=== PATIENT | female | born 1980 | race Caucasian/White ===

== ENCOUNTER 2025-07-07 21:09 | Emergency (ER) | payer MEDICAID, SELFPAY ==
--- OUTSIDE RECORDS SUMMARY | 2016-11-07 10:15 | XMS_ITS | Encounter Summary ---
Author Organization [place] [address] Care Team Providers Care Computer Graphic Designer Name Role Phone Deborah El MD Primary Care Provi margi Unavailable Encounter Details Date Type Department Care Team (Late st Contact Info) Description 11/07/2016 11:15 AM EDT Hospital Encounter EDG OB PREADM NURSE [facility] [place] [address] Social History Tobacco Use Types Packs/Day Years Used Date Smoking Tobacco: Former Cigarettes 0.5 29.3 0 07/29/1994 - 11/26/2023 Passive Smoke Exposure: Never Smokeless Tobacco: Never Tobacco Cessation:Ready to Q uit: Yes; Counseling Given: Yes Comments:started age 15, off and on, stopped with all pregnancies Alcohol Use Standard Drinks/Week Comments No 0 (1 standard drink = 0.6 oz pur e alcohol) Overall Financial Resource Strain (CARDIA) Answe r Date Recorded Difficulty of Paying Living Expenses Very hard 09/30/2019 PHQ-2 Answer Date Recorded PHQ-2 Total Score 6 07/16/2024 [facility] [place] of Occupat ional Health - Occupational Stress Questionnaire Answer Date Recorded Do you feel stress - tense, restless, nervous, or anxious, or unable to sleep at night because your mind is troubled all the time - these days? Rather much 10/13/2020 Exercise Vital Sign Answer Date Recorde d On average, how many days pe r week do you engage in moderate to strenuous exercise (like a brisk walk)? 5 days 10/13/2020 On average, how many minutes do you engage in exercise at this level? 150+ min 10/13/2020 Hunger Vital Sign Answer Date Recorded Worried About Running Out of Food in the Last Ye ar Often true 09/30/2019 Ran Out of Food in the Last Year Sometimes true 09/30/2019 PRAPARE - Transportation Answer Date Re corded Lack of Transportation (Medical) No 07/02/2019 Lack of Transportation (Non-Medical) No 07/02/2019 Comments No Sex and Gender Information Value Date Recorded Sex Assigned at Not on file Legal Sex Female 9:52 PM EDT Gender Identity Not on file Sexual Orientation Not on file COVID-19 Exposure Response Date Recorded In the last 10 days, have yo u been in contact with someone who was confirmed or suspected to have Coronavirus/COVID-19? No / Unsure 12/20/2022 2:09 PM EDT documented as of this encounter Functional Status * Question Answer Date of Assessment Author Is the person deaf or does he/she have serious difficulty hearing? No 02/08/2020 8:14 AM Bella Harrison RN Is the person blind or does he/she have serious difficulty seeing even when wearing glasses? No 02/08/2020 8:14 AM Bella Harrison RN Does this person have seriou s difficulty walking or climbing stairs? No 02/08/2020 8:14 AM Bella Harrison RN Does this person have diffic ulty dressing or bathing? No 02/08/2020 8:14 AM Bella Harrison RN * Is the person deaf or does he/she have serious difficulty hearing? Answer Date of Assessment Author No 10/13/2016 9:50 PM Douglas Larson RN * Is the person blind or does he/she have serious difficulty seeing even when wearing glasses? Answer Date of Assessment Author No 10/13/2016 9:50 PM Douglas Larson RN * Does this person have serious difficulty walking or climbing stairs? Answer Date of Assessment Author No 10/13/2016 9:50 PM Douglas Larson RN * Does this person have difficulty dressing or bathing? Answer Date of Assessment Author No 10/13/2016 9:50 PM Douglas Larson RN * Because of a physical, mental or emotional condition, does this person have difficulty doing errands alone such as visiting a doctor's office or shopping? Answer Date of Assessment Author No 10/13/2016 9:50 PM Douglas Larson RN * PHQ-2 Total Score Answer Date of Assessment Author 6 07/16/2024 9:00 AM Nicky Cheatham RMA * PHQ-9 Total Score Answer Date of Assessment Author 18 07/16/2024 9:00 AM Nicky Cheatham RMA * Question Answer Date of Assessment Author Little interest or pleasure in doing things 3 07/16/2024 9:00 AM Deborah Cheatham RMA Feeling down, depressed, or hopeless 3 07/16/2024 9:00 AM Deborah Cheatham RMA Trouble falling or staying asleep, or sleeping too much 3 07/16/2024 9:00 AM Deborah Cheatham RMA Feeling tired or having sherry le energy 3 07/16/2024 9:00 AM Deborah Cheatham RMA Poor appetite or overeating 0 07/16/2024 9: 00 AM Deborah Cheatham RMA Feeling bad about yourself - or that you are a failure or have let yourself or your family down 3 07/16/2024 9:00 AM Deborah Cheatham RMA Trouble concentrating on things, such as reading the newspaper or watching television 3 07/16/2024 9:00 AM Deborah Cheatham RMA Moving or speaking so slowly that other people could have noticed. Or the opposite - being so fidgety or restless that you have been moving around a lot more than usual 0 07/16/2024 9:00 AM Deborah Cheatham RMA Thoughts that you would be better off , or of hurting yourself in some way 0 07/16/2024 9:00 AM Deborah Cheatham RMA documented as of this encounter Mental Status * Question Answer Entry Date Author Because of a physical, menta l or emotional condition, does this person have difficulty doing errands alone such as visiting a doctor's office or shopping? No 02/08/2020 8:14 AM EDT Bella Pimentel RN Because of a physical, menta l or emotional condition, does this person have serious difficulty concentrating, remembering or making decisions? No 02/08/2020 8:14 AM EDT Bella Pimentel RN * Because of a physical, mental or emotional condition, does this person have serious difficulty concentrating, remembering or making decisions? Answer Entry Date Author No 10/13/2016 9:50 PM EDT Douglas Yun RN documented in this encounter Plan of Treatment Not on file documented as of this encounter Goals Goal Patient Goal Type Associated Problems Recent Progress Patient-Stated? Author Blood Pressure < 140/90 Blood Pressure 142/65(2024 12:12 AM EST) No Lana Tobias RMA Quit smoking General Yes Deborah El MD BMI (Calculated) < 30 General 36.2(06/10/20 25 3:40 PM EST) No Lana Tobias RMA Maintain a healthy diet, exercise regularly and maintain an ideal body weight General No Lana Tobias RMA Stay Tobacco Free Lifestyle No Lana Tobias RMA HEMOGLOBIN A1C < 7.0 Result Component 5.2( 5 10:31 AM EDT) No Jluis Lo MA Weight < 185 lb (83.915 kg) Weight 185 lb (83.9 kg)( 5 3:40 PM EST) No Deborah El MD documented as of this encounter Visit Diagnoses Not on filedocumented in this encounter Care Teams Computer Graphic Designer Relationship Specialty Start Date End Date Deborah El MD PCP - General Family Medicine 11/23/15 07/11/20 documented as of this encounter
--- OUTSIDE RECORDS SUMMARY | 2020-02-02 07:15 | XMS_ITS | Encounter Summary ---
Author Organization [place] [address] Care Team Providers Care Automotive Worker Foreman Name Role Phone Deborah El MD Primary Care Provi margi Unavailable Brittany Renee B2B SALES EXECUTIVE Unavailable Unavail able Encounter Details Date Type Department Care Team (Latest Contact Info) Description 02/02/2020 8:15 AM EDT Hospital [facility] [place] [address] Iron deficiency anemia during Social History Tobacco Use Types Packs/Day Years Used Date Smoking Tobacco: Former Cigarettes 0.5 29.3 0 07/29/1994 - 11/26/2023 Passive Smoke Exposure: Never Smokeless Tobacco: Never Comments:started age 15, off and on, stopped with all pregnancies Alcohol Use Standard Drinks/Week Comments No 0 (1 standard drink = 0.6 oz pur e alcohol) Overall Financial Resource Strain (CARDIA) Answe r Date Recorded Difficulty of Paying Living Expenses Very hard 09/30/2019 PHQ-2 Answer Date Recorded PHQ-2 Total Score 6 07/16/2024 [facility] [place] of Occupat ional Health - Occupational Stress [...] hearing? Answer Date of Assessment Author No 01/01/2020 11:34 AM Doreen Graham RN * Is the person blind or does he/she have serious difficulty seeing even when wearing glasses? Answer Date of Assessment Author No 01/01/2020 11:34 AM Doreen Graham RN * Does this person have serious difficulty walking or climbing stairs? Answer Date of Assessment Author No 01/01/2020 11:34 AM Doreen Graham RN * Does this person have difficulty dressing or bathing? Answer Date of Assessment Author No 01/01/2020 11:34 AM Doreen Graham RN * Because of a physical, mental or emotional condition, does this person have difficulty doing errands alone such as visiting a doctor's office or shopping? Answer Date of Assessment Author No 01/01/2020 11:34 AM Doreen Graham RN * PHQ-2 Total Score Answer Date [...] family down 3 07/16/2024 9:00 AM Deborah Cheatahm RMA Trouble concentrating on things, such as [...] making decisions? Answer Entry Date Author No 01/01/2020 11:34 AM EDT Doreen Ruelas RN documented in this encounter Plan of [...] documented as of this encounter Visit Diagnoses Diagnosis Iron deficiency anemia during documented in this encounter Additional Health Concerns Assessment Noted Time PHQ-9 Depression Total Score: 24 019 10:25 AM EDT PHQ-2 Depression Total Score: 6 01/08/20 19 10:25 AM EDT documented as of this encounter Care Teams Automotive Worker Foreman Relationship Specialty Start Date End Date Deborah El MD PCP - General Family Medicine 11/23/15 07/11/20 Brittany Renee, B2B SALES EXECUTIVE Boat Oar Maker 09/30/19 documented as of this encounter
--- OUTSIDE RECORDS SUMMARY | 2021-04-20 14:39 | XMS_ITS | Encounter Summary ---
Author Organization [place] [address] Care Team Providers Care Outside Salesperson Name Role Phone Raleigh Christiansen MD Unavailable Unavailable Jose E Brooke MD Primary Care Provider [phone] Encounter Details Date Type Department Care Team (Latest Contact Info) Description 04/20/2021 3:39 PM EDT Hospital Encounter [facility] Referral Lab [address] [place] [id number] Phyllis Cooley, [place] [address] [place] [id number] Encounter for therapeutic drug level monitoring Social History Tobacco Use Types Packs/Day Years [...] Date Recorded PHQ-2 Total Score 6 07/16/2024 [facility] [place] of Occupat ional Health - Occupational Stress [...] as of this encounter Functional Status * Is the person deaf or does he/she have serious difficulty hearing? Answer Date of Assessment Author No 02/08/2020 8:14 AM Bella Harrison RN * Is the person blind or does he/she have serious difficulty seeing even when wearing glasses? Answer Date of Assessment Author No 02/08/2020 8:14 AM Bella Harrison RN * Does this person have serious difficulty walking or climbing stairs? Answer Date of Assessment Author No 02/08/2020 8:14 AM Bella Harrison RN * Does this person have difficulty dressing or bathing? Answer Date of Assessment Author No 02/08/2020 8:14 AM Bella Harrison RN * Because of a physical, mental or emotional condition, does this person have difficulty doing errands alone such as visiting a doctor's office or shopping? Answer Date of Assessment Author No 02/08/2020 8:14 AM Bella Harrison RN * PHQ-2 Total Score Answer Date of Assessment Author 6 07/16/2024 9:00 AM Nicky Cheatham RMA * PHQ-9 Total Score Answer Date of Assessment Author 18 07/16/2024 9:00 AM Nicky Cheatham RMA * Question Answer Date of Assessment Author Little interest or pleasure in doing things 3 07/16/2024 9:00 AM eDborah Cheatham, BERNA[place] Feeling down, depressed, or hopeless 3 07/16/2024 9:00 AM Deborah Cheatham, AKHILA Trouble falling or staying asleep, or sleeping too much 3 07/16/2024 9:00 AM Deborah Cheatham, BERNADETTE Feeling tired or having sherry le energy 3 07/16/2024 9:00 AM Deborah Cheatham, BERNA[place] Poor appetite or overeating 0 07/16/2024 9: 00 AM Deborah Cheatham, BERNA[place]TE Feeling bad about yourself - or that you are a failure or have let yourself or your family down 3 07/16/2024 9:00 AM Deborah Cheatham, BERNADETTE Trouble concentrating on things, such as reading the newspaper or watching television 3 07/16/2024 9:00 AM Deborah Cheatham, BERNADETTE Moving or speaking so slowly that other [...] as of this encounter Mental Status * Because of a physical, mental or emotional condition, does this person have serious difficulty concentrating, remembering or making decisions? Answer Entry Date Author No 02/08/2020 8:14 AM Bella Harrison RN documented in this encounter Plan of Treatment Not on file documented as of this encounter Goals Goal Patient Goal Type Associated Problems Recent Progress Patient-Stated? Author Blood Pressure < 140/90 Blood Pressure 142/65(2024 12:12 AM EST) No Lana Tobias RMA Quit smoking General Yes Deborah El MD BMI (Calculated) < 30 General 36.2(06/10/20 3:40 PM EST) No Lana Tobias RMA Maintain a healthy diet, exercise regularly and maintain an ideal body weight General No Lana Tobias AKHILSuze Stay Tobacco Free Lifestyle No Lana Tobias BERNADETTE HEMOGLOBIN A1C < 7.0 Result Component 5.2( 10:31 AM EDT) No Jluis Lo MA Weight < 185 lb (83.915 kg) Weight 185 lb (83.9 kg)( 3:40 PM EST) No Deborah El MD documented as of this encounter Results * HUMAN CHORIONIC GONADOTROPIN QUANTITATIVE (04/21/2021 8:29 AM EDT) Pathologist [facility] Hcg Quant <1 <5 mIU/mL 04/21/2021 4:5 6 PM EDT [employer] Blood Venipuncture / Unknown 04/21/2021 8:29 AM EDT 04/21/2021 8:29 AM EDT Narrative [facility] [employer] - 04/21/2021 4:56 PM EDT Ingestion of debora doses of biotin (>5 mg/day) taken within 8 hours of drawing blood sample can interfere with this immunoassay test. Female (non-): 0-4.9 mIU/mL Female (postmenopausal): 0-8.1 mIU/mL Indeterminate values for (e.g., 5-25 mIU/mL) may be confirmed with a repeat test in 48-72 hours. Values in should double every 2-3 days for the first six weeks. us Phyllis Cooley NP CHEMISTRY ORDERABLES F inal Result [employer] [address] [facility] , [place] [address] * HEMOGLOBIN A1C (04/21/2021 8:29 AM EDT) [facility] Hgb A1C 4.9 4.2 - 5.6 % 04/21/2021 4:22 PM EDT [facility] Est. Avg Glucose 94 mg/dL 04/21/2021 4:22 PM EDT [facility] Blood Venipuncture / Unknown 04/21/2021 8:29 AM EDT 04/21/2021 8:29 AM EDT Narrative [facility] - 04/21/2021 4:22 PM EDT REFERENCE RANGE: Normal: 4.0-5.6% Pre-diabetes: 5.7-6.4% Provisional diagnosis of diabetes: >6.4% Hgb F>10% and anything which shortens red cell survival, such as hemolytic anemia, or unstable hemoglobin variants such as HbSS, HbSC, or HbCC, will lower the HbA1c value associated with a given level of glycemic control. Phyllis Cooley FARROWING MANAGER CHEMISTRY ORDERABLES F inal Result Performing Organization Address [facility] de Phone Number [facility] [place] , [place] [address] * TSH REFLEX (04/21/2021 8:29 AM EDT) TSH Reflex 1.160 0.270 - 4.200 mcIU/mL 04/21/2021 4:50 PM EDT [facility] Blood Venipuncture / Unknown 04/21/2021 8:29 AM EDT 04/21/2021 8:29 AM EDT [facility] - 04/21/2021 4:50 PM EDT Ingestion of debora doses of biotin (>5 mg/day) taken within 8 hours of drawing blood sample can interfere with this immunoassay test. Phyllis Cooley FARROWING MANAGER CHEMISTRY ORDERABLES F inal Result Performing Organization Address [facility] Co de Phone Number [facility] , [place] [address] * (ABNORMAL) RENAL FUNCTION PANEL (04/21/2021 8:29 AM EDT) [facility] Sodium 140 136 - 145 mmol/L 04/21/2021 4:50 PM EDT [facility] Potassium 4.2 3.5 - 5.0 mmol/L 04/21/2021 4:50 PM EDT [facility] Chloride 106 98 - 107 mmol/L 04/21/2021 4:50 PM EDT [facility] Total CO2 22 22 - 29 mmol/L 04/21/2021 4:50 PM EDT [facility] Anion Gap 12 7 - 16 mmol/L 04/21/2021 4:50 PM EDT [facility] Calcium 8.6 8.6 - 10.4 mg/dL 04/21/2021 4:50 PM EDT [facility] Glucose Lvl 117(H) 74 - 100 mg/dL 04/21/2021 4:50 PM EDT [facility] BUN 11 6 - 20 mg/dL 04/21/2021 4:50 PM EDT [facility] Creatinine 0.63 0.51 - 1.30 mg/dL 04/21/2021 4:50 PM EDT [facility] Albumin 4.2 3.5 - 5.2 gm/dL 04/21/2021 4:50 PM EDT [facility], [facility] Phosphorus 3.1 2.5 - 4.5 mg/dL 04/21/2021 4:50 PM EDT [facility], [facility] GFR Afr Am 131 >=60 mL/min/1.7 3 m2 04/21/2021 4:50 PM [facility] GFR Non Afr Am 113 >=60 mL/min/1.7 3 m2 04/21/2021 4:50 PM T [facility] Comment: This estimated GFR was calculated using CKD-EPI equation which is modified based on ethnicity for Non Americans and Americans. Both results are reported since it is not always possible to determine the patient's ethnicity. This equation should only be used for individuals 18 and older. It has not been validated for use with the elderly (>70 years), women, or in some racial or ethnic subgroups, such as Hispanics. The equation will be less accurate in people with differences in nutritional status or muscle mass. Blood Venipuncture / Unknown 04/21/2021 8:29 AM EDT 04/21/2021 8:29 AM EDT us Phyllis Cooley NP CHEMISTRY ORDERABLES F inal Result [facility] [address] [facility], [address] [place] [phone] [facility] [address] [id number] * (ABNORMAL) CBC WITH DIFF (04/21/2021 8:29 AM EDT) WBC 5.9 3.7 - 10.3 x10(3)/mc L 04/21/2021 4:19 PM EDT [facility] RBC 4.27 3.90 - 5.20 x10(6)/mc L 04/21/2021 4:19 PM EDT [facility] Hgb 8.7(L) 11.2 - 15.7 g/dL 04/21/2021 4:19 PM EDT [facility] Hct 31.1(L) 34.0 - 45.0 % 04/21/2021 4:19 PM EDT [facility] MCV 72.8(L) 80.0 - 100.0 fL 04/21/2021 4:19 PM EDT [facility] MCH 20.4(L) 26.0 - 34.0 pg 04/21/2021 4:19 PM EDT [facility] MCHC 28.0(L) 30.7 - 35.5 g/dL 04/21/2021 4:19 PM EDT [facility] RDW 18.2(H) <=14.9 % 04/21/2021 4:19 PM EDT [facility] Platelet 417(H) 155 - 369 x10(3)/mc L 04/21/2021 4:19 PM EDT [facility] MPV 10.2 8.8 - 12.5 fL 04/21/2021 4:19 PM EDT [facility] Neut Percent 60.2 % 04/21/2021 4:19 PM EDT [facility] Comment:Neutrophils equals s egs plus bands Imm Gran% 0.2 % 04/21/2021 4:19 PM EDT [facility] Comment:Automated count of m etamyelocytes, myelocytes and promyelocytes. Lymph Percent 27.3 % 04/21/2021 4:19 PM EDT [facility] [place] Percent 5.9 % 04/21/2021 4:19 PM EDT [facility] Eos Percent 5.6 % 04/21/2021 4:19 PM EDT [facility] Baso Percent 0.8 % 04/21/2021 4:19 PM EDT [facility] Neut # 3.6 1.6 - 6.1 x10(3)/mc L 04/21/2021 4:19 PM EDT [facility] Comment:Neutrophils equals s egs plus bands IMMGRAN# 0.0 0.0 - 0.1 x10(3)/mc L 04/21/2021 4:19 PM EDT [facility] Comment:Automated count of m etamyelocytes, myelocytes and promyelocytes. An absolute IG <0.1 is reported as 0.0. Lymph # 1.6 1.2 - 3.9 x10(3)/mc L 04/21/2021 4:19 PM EDT [facility] [place] # 0.4 0.3 - 0.9 x10(3)/mc L 04/21/2021 4:19 PM EDT [facility] Eos# 0.3 0.0 - 0.5 x10(3)/mc L 04/21/2021 4:19 PM EDT [facility] Baso # 0.1 0.0 - 0.1 x10(3)/mc L 04/21/2021 4:19 PM EDT [facility] Polychrom Slight 04/21/2021 4:19 PM EDT [facility] Hypochrom Moderate 04/21/2021 4:19 PM EDT [facility] Ovalocyte Occasional 04/21/2021 4:19 PM EDT [facility] Supply Cell Occasional 04/21/2021 4:19 PM EDT [facility] Schistocyte 0-1 /HPF 04/21/2021 4:19 PM EDT [facility] Blood Venipuncture / Unknown 04/21/2021 8:29 AM EDT 04/21/2021 8:29 AM EDT Phyllis Cooley FARROWING MANAGER HEMATOLOGY ORDERABLES Final Result Performing Organization Address City/[facility]/ZIP Co de Phone Number [facility] [address] [facility] , [address] [place] [phone] * (ABNORMAL) LIPID PANEL REFLEX (04/21/2021 8:29 AM EDT) Cholesterol 134 <200 mg/dL 04/21/2021 4:50 PM EDT [facility] Comment: < 200 Desirable 200 - 239 Borderline High >= 240 High Triglyceride 86 <150 mg/dL 04/21/2021 4:50 PM EDT [facility] Comment: < 150 Normal 150 - 199 Borderline High 200 - 499 High >= 500 Very High HDL 36(L) >=40 mg/dL 04/21/2021 4:50 PM EDT [facility] Comment: > 60 Optimal 40 - 60 Acceptable < 40 Low LDL Calculated 81 <100 mg/dL 04/21/2021 4:50 PM EDT [facility] Non-HDL-C Calculated 98 <=129 mg/dL 04/21/2021 4:50 PM EDT [facility] Comment: <130 Desirable 130-159 Above Desirable 160-189 Borderline High 190-219 High >= 220 Very High Fasting Specimen? No None 021 4:50 PM EDT [facility] Blood Venipuncture / Unknown 04/21/2021 8:29 AM EDT 04/21/2021 8:29 AM EDT Phyllis Cooley FARROWING MANAGER CHEMISTRY ORDERABLES F inal Result Performing Organization Address City/[facility]/ZIP Co de Phone Number [facility] [address], [place] [address] [facility] [address] [place] [phone] documented in this encounter Visit Diagnoses Diagnosis Encounter for therapeutic drug level monitoring Encounter for therapeutic drug monitoring documented in this encounter Orders Lab Orders Without Results Count Last Ordered D ate First Ordered Date BASIC METABOLIC PANEL 1 04/20/2021 HEPATIC FUNCTION PANEL 1 04/20/2021 documented in this encounter Additional Health Concerns Assessment Noted Time PHQ-9 Depression Total Score: 2 08/11/19 21 11:09 AM EST PHQ-2 Depression Total Score: 2 08/11/19 21 11:09 AM EST documented as of this encounter Care Teams Outside Salesperson Relationship Specialty Start Date End Date Raleigh Christiansen MD PCP - Hematology/Oncology Internal Medicine-Hematology and Oncology 03/10/20 Jose E Brooke MD PCP - General Family Medicine 01/26/21 01/29/22 documented as of this encounter
--- OUTSIDE RECORDS SUMMARY | 2025-05-14 08:45 | XMS_ITS | Encounter Summary ---
Author Organization [facility] Address [address] [place] [address] Care Team Providers Care Measurement Superintendent Name Role Phone Raleigh Christiansen MD Unavailable Unavailable Raleigh Christiansen MD Unavailable Unavailable Sharad Salvador MD Unavailable Karri Rosas MD Primary Care Provider [phone] Reason for Referral * MRI/CAT Scan (Routine) - AFF Authorized Specialty Diagnoses / Procedures Referred By Contac t Referred To Contact Orthopedic Surgery Diagnoses Sprain of left knee, unspecified ligament, initial encounter Bursitis of left knee, unspecified bursa Procedures MRI KNEE LEFT WO CONTRAST Chris Cuellar MD [address] [address] Phone: tel: fax: [facility] [address] [place] [address] Phone: tel: fax: Referral ID Status Reason Start Date Expiration Date Visits Requested Visits Authorized [id number] AFF Authorized 05/14/2025 05/14/2026 1 1 Reason for Visit * Reason Comments Follow-up Encounter Details Date Type Department Care Team ([facility] Contact Info) Description 05/14/2025 9:45 AM EDT Office Visit [facility] [address] [place] [address] Chris Cuellar MD [address] [place], [place] [id number] Sprain of left knee, unspecified ligament, initial encounter (Primary Dx); Bursitis of left knee, unspecified bursa Social History Tobacco Use Types Packs/Day Years [...] Date Recorded PHQ-2 Total Score 6 07/16/2024 [facility] Occupat ional Health - Occupational Stress [...] on file Sexual Orientation Not on file documented as of this encounter Last Filed Vital Signs Vital Sign Reading Time Taken Comments Blood Pressure - - Pulse - - Temperature - - Respiratory Rate - - Oxygen Saturation - - Inhaled Oxygen Concentration - - Weight 86.2 kg (190 lb) 05/14/2025 9:36 AM EDT Height 152.4 cm (5') 05/14/2025 9:36 AM EDT Body Mass Index 37.11 05/14/2025 9:36 AM EDT documented in this encounter Functional Status * Is the person deaf or does he/she have serious difficulty hearing? Answer Date of Assessment Author No 02/08/2020 8:14 AM EDT Bella Pimentel RN * Is the person blind or does he/she have serious difficulty seeing even when wearing glasses? Answer Date of Assessment Author No 02/08/2020 8:14 AM EDT Bella Pimentel RN * Does this person have serious difficulty walking or climbing stairs? Answer Date of Assessment Author No 02/08/2020 8:14 AM EVANT Bella Pimentel RN * Does this person have difficulty dressing or bathing? Answer Date of Assessment Author No 02/08/2020 8:14 AM Bella Harrison RN * Because of a physical, mental or emotional condition, does this person have difficulty doing errands alone such as visiting a doctor's office or shopping? Answer Date of Assessment Author No 02/08/2020 8:14 AM EDBella Damico RN documented as of this encounter Mental Status * Because of a physical, mental or emotional condition, does this person have serious difficulty concentrating, remembering or making decisions? Answer Entry Date Author No 02/08/2020 8:14 AM Bella Harrison RN documented in this encounter Progress Notes * Chris Cuellar MD - 05/14/2025 9:45 AM EDT Images from the original note were not included. Chrsi Cuellar MD [facility] [phone] Gem Lemon is a 45 y.o. female comes in to office today for left knee sprain, medial meniscus tear and bursitis. Awaiting insurance approval of the requested MRI left knee. Patient reports that she has been the same since her last appointment she has finished the insurance requested PT, ongoing pain and swelling. Pain level: 6 /10 Location: left knee Description: moderate aching and sharp Radiation: YES/NO: No Time: FREQUENCY; INTERMITTENT / PERSISTENT: intermittent ROS All systems reviewed and negative. Exam: Height: 5' (152.4 cm) Weight: 190 lb (86.2 kg) General Exam: Pt is alert and oriented x 3 and in no acute distress. Gait is with pain with pain. Mood and affect are appropriate. HEENT Normocephalic. Extremities: No varicosities No edema Neurologic: Sensation- normal to light touch. DTR-symmetric and brisk. Seated straight leg raise negative. Toe/Heel walk weak. Today Musculoskeletal: Lower Extremities Bilateral lower extremity strength symmetric - No Good muscle tone without atrophy - No Left knee decreased quadricep tone pain with extension positive Uriel no ligamentous laxity Data: I independently reviewed the X-ray with the patient. I provided my interpretation to the patient during today's office visit. Assessment: Diagnoses and all orders for this visit: Sprain of left knee, unspecified ligament, initial encounter - MRI KNEE LEFT WO CONTRAST; Future Bursitis of left knee, unspecified bursa - MRI KNEE LEFT WO CONTRAST; Future Plan: Reviewed prior X-rays and updated exam today, to assist in today's clinical decisions. History exam x-rays reviewed, ongoing meniscus pathology despite the requested PT, completed the required length. Get MRI left knee. Remain active as able, to be advanced as pain allows. Call staff with questions or concerns. I covered risks, benefits, alternative treatment options and the rationale. The anatomical and physiological reference registered radiation therapist in the clinic room was available as a resource during this visit. The patient had the opportunity to ask questions, all of which were answered in turn. OV with MRI results DME Summary No orders found for display Chris Cuellar MD [facility] [phone] Parts of this note may have been created by a chart review, combined by taking my own patient history. The patient was physically seen and examined by myself, including a personal review of images, tests, and formation of the impression and plan. In addition, this note may been dictated utilizing voice recognition software. Unfortunately this leads to occasional typographical errors. I apologize in advance if the situation occurs. If questions occur please do not hesitate to call our office. The patient was advised to call with any issues or concerns in the future. documented in this encounter Plan of Treatment [...] documented as of this encounter Results * MRI KNEE LEFT WO CONTRAST (06/02/2025 5:47 PM EST) Narrative [facility] - 06/02/2025 5:47 PM EST Please see the scanned MRI report associated with this order on the Imaging tab of the patient's chart. us Chris Cuellar MD IMG MRI ORDERABLES Final Result [facility] documented in this encounter Visit Diagnoses Diagnosis Sprain of left knee, unspecified ligament, initial encounter- Primary Bursitis of left knee, unspecified bursa Sprain of left knee, unspecified ligament, initial encounter Bursitis of left knee, unspecified bursa documented in this encounter Additional Health Concerns Assessment Noted Time PHQ-9 Depression Total Score: 18 024 9:00 AM EST PHQ-2 Depression Total Score: 6 07/16/20 24 9:00 AM EST documented as of this encounter Care Teams Measurement Superintendent Relationship Specialty Start Date End Date Raleigh Christiansen MD PCP - Hematology/Oncology Internal Medicine-Hematology and Oncology 03/10/20 Karri Rosas MD [address] [place] [address] [address] [place], [place] [address] PCP - General Family Medicine 07/16/24 Raleigh Christiansen MD Medical Oncologist Internal Medicine-Hematology and Oncology 06/12/21 Sharad Salvador MD Urology 05/10/22 documented as of this encounter
--- OUTSIDE RECORDS SUMMARY | 2025-05-14 12:15 | XMS_ITS | Encounter Summary ---
Author Organization [facility] [place] [address] Care Team Providers Care Vegetable Buncher Name Role Phone Raleigh Christiansen MD Unavailable Unavailable Raleigh Christiansen MD Unavailable Unavailable Sharad Salvador MD Unavailable Karri Rosas MD Primary Care Provider Reason for Visit * Reason Comments Other Herpes outbreak x2 d ays Encounter Details Date Type Department Care Team (Late st Contact Info) Description 05/14/2025 1:15 PM EDT Office Visit [facility] [address] Karri Rosas MD [address] [place] [address] [place] [address] Herpes (Primary Dx) Social History Tobacco Use Types Packs/Day Years Used Date Smoking Tobacco: Former Cigarettes 0.5 29.3 0 07/29/1994 - 11/26/2023 Passive Smoke Exposure: Never Smokeless Tobacco: Never Tobacco Cessation:Counseling Given: Not Answered Comments:started age 15, off and on, stopped with all pregnancies Alcohol Use Standard Drinks/Week Comments No 0 (1 standard drink = 0.6 oz pur e alcohol) Overall Financial Resource Strain (CARDIA) Answe r Date Recorded Difficulty of Paying Living Expenses Very hard 09/30/2019 PHQ-2 Answer Date Recorded PHQ-2 Total Score 6 07/16/2024 [facility] [place] of Occupat ional Health - Occupational Stress [...] Sign Reading Time Taken Comments Blood Pressure 120/70 05/14/2025 12:58 PM EDT Pulse 71 05/14/2025 12:58 PM EDT Temperature 36.7 C (98.1 F) 05/14/2025 12:58 PM EDT Respiratory Rate 18 05/14/2025 12:58 PM EDT Oxygen Saturation 99% 05/14/2025 12:58 PM EDT Inhaled Oxygen Concentration - - Weight 83.9 kg (185 lb) 05/14/2025 12:58 PM EDT Height 152.4 cm (5') 05/14/2025 12:58 PM EDT Body Mass Index 36.13 05/14/2025 12:58 PM EDT documented in this encounter Functional Status [...] 02/08/2020 8:14 AM Bella Harrison RN documented as of this encounter Mental Status * Because of a physical, mental or emotional condition, does this person have serious difficulty concentrating, remembering or making decisions? Answer Entry Date Author No 02/08/2020 8:14 AM Bella Harrison RN documented in this encounter Ordered Prescriptions Prescription Sig Dispense Quantity Refills Last Filled Start Date End Date valACYclovir (VALTREX) 1 gram Oral TabletIndications:H erpes Take 1 Tablet by mouth 2 times daily. 14 Tablet 5 05/14/2025 documented in this encounter Progress Notes * Karri Rosas MD - 05/14/2025 1:15 PM EDT Assessment & Plan Herpes Orders: valACYclovir (VALTREX) 1 gram Oral Tablet; Take 1 Tablet by mouth 2 times daily. Will treat herpes outbreak with valacyclovir follow-up as needed Progress Note: Vitals: 05/14/25 1258 BP: 120/70 Pulse: 71 Resp: 18 Temp: 98.1 ??F (36.7 ??C) TempSrc: Temporal SpO2: 99% Weight: 185 lb (83.9 kg) Height: 5' (1.524 m) Body mass index is 36.13 kg/m??. SUBJECTIVE: Chief Complaint Patient presents with Other Herpes outbreak x2 days HPI: 2-day history of herpes outbreak on her lip. Previously responds well to valacyclovir but does not have an active prescription for this. Having associated pain and discomfort when talking and swallowing/eating. Review of Systems Constitutional: Negative for activity change, chills, fatigue and fever. Skin: Positive for rash. OBJECTIVE: Physical Exam Vitals reviewed. Constitutional: Appearance: She is not ill-appearing. HENT: Mouth/Throat: Comments: Herpes blisters on lower lip Neurological: General: No focal deficit present. Mental Status: She is alert and oriented to person, place, and time. Psychiatric: Mood and Affect: Mood normal. documented in this encounter Plan of Treatment [...] ideal body weight General No Lana Tobias RMSuze Stay Tobacco Free Lifestyle No Lana Tobias RMA HEMOGLOBIN A1C < 7.0 Result Component 5.2( 10:31 AM EDT) No Jluis Lo MA Weight < 185 lb (83.915 kg) Weight 185 lb (83.9 kg)( 3:40 PM EST) No Deborah El MD documented as of this encounter Visit Diagnoses Diagnosis Herpes- Primary Herpes simplex without mention of complication documented in this encounter Additional Health Concerns Assessment Noted Time PHQ-9 Depression Total Score: 18 024 9:00 AM EST PHQ-2 Depression Total Score: 6 07/16/20 24 9:00 AM EST documented as of this encounter Care Teams Vegetable Buncher Relationship Specialty Start Date End Date Raleigh Christiansen MD PCP - Hematology/Oncology Internal Medicine-Hematology and Oncology 03/10/20 Karri Rosas MD [address] [place] [address] [place] [address] PCP - General Family Medicine 07/16/24 Raleigh Christiansen MD Medical Oncologist Internal Medicine-Hematology and Oncology 06/12/21 Sharad Salvador MD Urology 05/10/22 documented as of this encounter
--- OUTSIDE RECORDS SUMMARY | 2025-06-02 17:30 | XMS_ITS | Encounter Summary ---
Author Organization [facility] Address [address] [place] [address] Care Team Providers Care Room Service Clerk Name Role Phone Raleigh Christiansen MD Unavailable Unavailable Raleigh Christiansen MD Unavailable Unavailable Sharad Salvador MD Unavailable Karri Rosas MD Primary Care Provider [phone] Reason for Visit * MRI/CAT Scan (Routine) - AFF Authorized Specialty Diagnoses / Procedures Referred By Contac t Referred To Contact Orthopedic Surgery Diagnoses Sprain of left knee, unspecified ligament, initial encounter Bursitis of left knee, unspecified bursa Procedures MRI KNEE LEFT WO CONTRAST Chris Cuellar MD [address] [place] [address] Phone: tel: fax: [facility] [address] [place] [address] Phone: tel: fax: Referral ID Status Reason Start Date Expiration Date Visits Requested Visits Authorized [id number] AFF Authorized 05/14/2025 05/14/2026 1 1 Encounter Details Date Type Department Care Team (Latest Contact Info) Description 06/02/2025 5:30 PM EST Ancillary Procedure [facility] [address] [place] [address] Chris Cuellar MD [address] [place] [address] Sprain of left knee, unspecified ligament, initial encounter; Bursitis of left knee, unspecified bursa Social [...] Date Recorded PHQ-2 Total Score 6 07/16/2024 [facility] of Occupat ional Health - Occupational [...] on file documented as of this encounter Functional Status * Is the person deaf or does he/she have serious difficulty hearing? Answer Date of Assessment Author No 02/08/2020 8:14 AM Bella Harrison RN * Is the person blind or does he/she have serious difficulty seeing even when wearing glasses? Answer Date of Assessment Author No 02/08/2020 8:14 AM EDT Margarito, Bella L, RN * Does this person have serious [...] Stay Tobacco Free Lifestyle No Lana Tobias RMSuze HEMOGLOBIN A1C < 7.0 Result Component 5.2( 10:31 AM EDT) No Jluis Lo MA Weight < 185 lb (83.915 kg) Weight 185 lb (83.9 kg)( 3:40 PM EST) No Deborah El MD documented as of this encounter Procedures Procedure Name Priority Date/Time Associated Diagnosis Comments MRI KNEE LEFT WO CONTRAST Routine 06/02/2025 5:47 PM EST Sprain of left knee, unspecified ligament, initial encounter Bursitis of left knee, unspecified bursa documented in this encounter Results * MRI KNEE LEFT WO CONTRAST (06/02/2025 5:47 PM EST) Narrative [facility] - 06/02/2025 5:47 PM EST Please see the scanned MRI report associated with this order on the Imaging tab of the patient's chart. us Chris Cuellar MD IMG MRI ORDERABLES Final Result [facility] documented in this encounter Visit Diagnoses Diagnosis Sprain of left knee, unspecified ligament, initial encounter Bursitis of left knee, unspecified bursa documented in this encounter Additional Health Concerns Assessment Noted Time PHQ-9 Depression Total Score: 18 024 9:00 AM EST PHQ-2 Depression Total Score: 6 07/16/20 24 9:00 AM EST documented as of this encounter Care Teams Room Service Clerk Relationship Specialty Start Date End Date Raleigh Christiansen MD PCP - Hematology/Oncology Internal Medicine-Hematology and Oncology 03/10/20 Karri Rosas MD [address] [place] [address] [place] [address] PCP - General Family Medicine 07/16/24 Raleigh Christiansen MD Medical Oncologist Internal Medicine-Hematology and Oncology 06/12/21 Sharad Salvador MD Urology 05/10/22 documented as of this encounter
--- OUTSIDE RECORDS SUMMARY | 2025-06-10 15:15 | XMS_ITS | Encounter Summary ---
Author Organization [facility] Address [address] [place] [address] Care Team Providers Care Brand Strategy Manager Name Role Phone Raleigh Christiansen MD Unavailable Unavailable Raleigh Christiansen MD Unavailable Unavailable Sharad Salvador MD Unavailable Karri Rosas MD Primary Care Provider [phone] Reason for Visit * Reason Comments Follow-up Encounter Details Date Type Department Care Team (Late st Contact Info) Description 06/10/2025 3:15 PM EST [facility] [address] [facility] [address] [place] [address] Chris Cuellar MD [address] [address] Acute lateral meniscus tear of left knee, initial encounter (Primary Dx); Sprain of left knee, unspecified ligament, initial encounter Social History Tobacco Use Types Packs/Day Years [...] Date Recorded PHQ-2 Total Score 6 07/16/2024 [facility] [place] of Occupat ional Health - Occupational Stress [...] - Inhaled Oxygen Concentration - - Weight 83.9 kg (185 lb) 06/10/2025 3:40 PM EST Height 152.4 cm (5') 06/10/2025 3:40 PM EST Body Mass Index 36.13 06/10/2025 3:40 PM EST documented in this encounter Functional Status * [...] Progress Notes * Chris Cuellar MD - 06/10/2025 3:15 PM EST Images from the original note were not included. Chris Cuellar MD [facility] [phone] Gem Lemon is a 45 y.o. female comes in to office today for follow up of her left knee injury following an MRI. Ongoing lateral left knee pain with swelling, popping that makes ambulation and work difficult. Working with the brace okay. Patient reports no new injury. Pain level: 6 /10 Location: left knee Description: moderate aching and sharp Radiation: YES/NO: No Time: FREQUENCY; INTERMITTENT / PERSISTENT: intermittent ROS All systems reviewed and negative. Exam: Height: 5' (152.4 cm) Weight: 185 lb (83.9 kg) General Exam: Pt is alert and oriented x 3 and in no acute distress. Gait is ok. Mood and affect are appropriate. HEENT Normocephalic. Extremities: No varicosities No edema Neurologic: Sensation- normal to light touch. DTR-symmetric and brisk. Seated straight leg raise negative. Toe/Heel walk present. Musculoskeletal: Lower Extremities Bilateral lower extremity strength symmetric - No Good muscle tone without atrophy - No Left knee symmetric quad tone and motion lateral joint line tenderness no ligamentous laxity Data: MRI-L Knee- IMPRESSION: 1. Degenerative free edge blunting of the lateral meniscus body segment without displaced meniscal tear. 2. Intact medial meniscus, cruciate ligaments and collateral ligaments. 3. Mild medial compartment chondrosis. 4. Small joint effusion and tiny Reyes's cyst. I independently reviewed the X-rays and MRI with the patient. I provided my interpretation to the patient during today's office visit. Assessment: Diagnoses and all orders for this visit: Acute lateral meniscus tear of left knee, initial encounter Sprain of left knee, unspecified ligament, initial encounter Plan: Reviewed prior X-rays and updated exam today, to assist in today's clinical decisions. History exam updated, reviewed MRI using pictures and report explained radiologist findings, lateral meniscus tear. Offered nonsurgical approach, she preferred surgery consult. Continue Relafen 750 twice daily and brace with work. Remain active as able, to be advanced as pain allows. Call staff with questions or concerns. I covered risks, benefits, alternative treatment options and the rationale. The anatomical and physiological reference management tech in the clinic room was available as a resource during this visit. The patient had the opportunity to ask questions, all of which were answered in turn. OV prn DME Summary No orders found for display Chris Cuellar MD [facility] [phone] Parts of this note may have been [...] an ideal body weight General No Lana Tobias, RMA Stay Tobacco Free Lifestyle No Lana Tobias, RMA HEMOGLOBIN A1C < 7.0 Result Component 5.2( 10:31 AM EDT) No Jluis Lo MA Weight < 185 lb (83.915 kg) Weight 185 lb (83.9 kg)( 5 3:40 PM EST) Deborah Mary MD documented as of this encounter Visit Diagnoses Diagnosis Acute lateral meniscus tear of left knee, initial encounter- Primary Sprain of left knee, unspecified ligament, initial encounter documented in this encounter Additional Health Concerns Assessment Noted Time PHQ-9 Depression Total Score: 18 024 9:00 AM EST PHQ-2 Depression Total Score: 6 07/16/20 24 9:00 AM EST documented as of this encounter Care Teams Brand Strategy Manager Relationship Specialty Start Date End Date Raleigh Christiansen MD PCP - Hematology/Oncology Internal Medicine-Hematology and Oncology 03/10/20 Karri Rosas MD [address] [place] [address] [place] [address] PCP - General Family Medicine 07/16/24 Raleigh Christiansen MD Medical Oncologist Internal Medicine-Hematology and Oncology 06/12/21 Sharad Salvador MD Urology 05/10/22 documented as of this encounter
--- OUTSIDE RECORDS SUMMARY | 2025-07-07 00:09 | XMS_ITS | Encounter Summary ---
Author Organization [place] [address] Care Team Providers Care Biscuit Machine Operator Name Role Phone Raleigh Christiansen MD Unavailable Unavailable Raleigh Christiansen MD Unavailable Unavailable Sharad Salvador MD Unavailable Karri Rosas MD Primary Care Provider [phone] Reason for Visit * Reason Comments Vaginal Bleeding Had a partial hyster ectomy 2 years ago, is having spotting of blood, first time since the surgery Encounter Details Date Type Department Care Team (Late st Contact Info) Description 07/07/2025 12:09 AM EST - 07/07/2025 1:04 AM EST [facility] [address] [place] [address] Ximena Strauss, [address] [phone] Vaginal spotting (Primary Dx) Discharge Disposition: Home or Self Care Social History Tobacco Use Types Packs/Day Years [...] Date Recorded PHQ-2 Total Score 6 07/16/2024 [facility] - Occupational [...] Sign Reading Time Taken Comments Blood Pressure 142/65 07/07/2025 12:12 AM EST Pulse 68 07/07/2025 12:06 AM EST Temperature 36.5 C (97.7 F) 07/07/2025 12:11 AM EST Respiratory Rate 18 07/07/2025 12:06 AM EST Oxygen Saturation 100% 07/07/2025 12:06 AM EST Inhaled Oxygen Concentration - - Weight - - Height - - Body Mass Index - - documented in this encounter Functional Status * [...] Bella Harrison RN documented in this encounter Discharge Instructions * Attachments The following attachments cannot be sent through Care Everywhere. * Vaginal dryness (Grenadian) documented in this encounter Medications at Time of Discharge conjugated estrogens (PREMARIN) Vagl Cream Place vaginally daily for 30 days. 30 g 07/07/2025 6 Lysine 1,000 mg Oral Tablet Take 1,000 mg by mouth daily. 30 Tablet 07/07/2025 nabumetone (RELAFEN) 750 mg Oral TabletIndications :Sprain of left knee, unspecified ligament, initial encounter,Bursiti s of left knee, unspecified bursa TAKE 1 TABLET BY MOUTH TWICE A DAY 60 Tablet 06/28/2025 valACYclovir (VALTREX) 1 gram Oral TabletIndications :Herpes Take 1 Tablet by mouth 2 times daily. 14 Tablet 5 05/14/2025 venlafaxine (EFFEXOR-XR) 75 mg Oral Capsule, Sust. Release 24 hrIndications:Gen eralized anxiety disorder,Current moderate episode of major depressive disorder without prior episode (HCC) Take 1 Capsule by mouth daily. 30 Capsule 3 04/22/2025 documented as of this encounter Ordered Prescriptions Prescription Sig Dispense Quantity Refills Last Filled Start Date End Date Lysine 1,000 mg Oral Tablet Take 1,000 mg by mouth daily. 30 Tablet 07/07/2025 conjugated estrogens (PREMARIN) Vagl Cream Place vaginally daily for 30 days. 30 g 07/07/2025 6 documented in this encounter Discharge Disposition Disposition Code Departure Means Destination Comment s Home or Self Usp documented in this encounter ED Notes * Ximena Strauss, - 07/07/2025 12:05 AM EST Images from the original note were not included. EMERGENCY MEDICINE ATTENDING NOTE Location: [facility] 07/07/2025 Pt Name: Gem Lemon Birthdate 1980 Date of evaluation: 07/07/2025 Provider: XIMENA STRAUSS DO PCP: Karri Rosas MD CHIEF COMPLAINT: Chief Complaint Patient presents with Vaginal Bleeding Had a partial hysterectomy 2 years ago, is having spotting of blood, first time since the surgery HISTORY OF PRESENT ILLNESS: History obtained by patient. Gem Lemon is a 45 y.o. female with a significant PMHx of previous hysterectomy, ovaries intact, HPV, HSV, here in the emergency department today with vaginal spotting. She says it is very light, very light pink, not significant bleeding. Started this morning. Last sexual intercourse 3days ago. No lesions, recent outbreaks of HSV, or vaginal pain. No pelvic pain, abdominal pain, nausea vomiting diarrhea. No other concerns today in the emergency department. Patient says she think she is going through menopause, because she has hot and cold flashes, fatigue, and episodes of extreme irritability. She wonders if that could be related. She did have an HSV outbreak a couple months ago, and called PCP for Valtrex. 1 significant other out of the room, patient confirms that she is not concerned about STIs. She is monogamous with her partner. She feels safe in her relationships. On chart review, patient seen by OBGYN 07/02/2023: A/P: Diagnoses and all orders for this visit: Vaginal lesion - HSV DNA [id number]; Future; Expected date: 07/12/2023 - HIV AG/AB; Future - ACUTE HEPATITIS PANEL; Future - SYPHILIS SCREEN WITH REFLEX RPR QUANT; Future - valACYclovir (VALTREX) 1 gram Oral Tablet; Take 1 Tablet by mouth 2 times daily for 7 days. Dispense: 14 Tablet; Refill: 0 Routine screening for STI (sexually transmitted infection) - CHLAMYDIA/GC; Future; Expected date: 07/12/2023 - TRICHOMONAS VAGINALIS TMA; Future; Expected date: 07/12/2023 - GENITAL CULTURE (STAIN INCLUDED); Future; Expected date: 07/12/2023 - HIV AG/AB; Future - ACUTE HEPATITIS PANEL; Future - SYPHILIS SCREEN WITH REFLEX RPR QUANT; Future Vaginal discharge - CHLAMYDIA/GC; Future; Expected date: 07/12/2023 - TRICHOMONAS VAGINALIS TMA; Future; Expected date: 07/12/2023 - GENITAL CULTURE (STAIN INCLUDED); Future; Expected date: 07/12/2023 HSV culture collected~ discussed concerns that this is primary HSV outbreak given HPI and exam findings STI screen collected Genital culture collected STI blood work ordered (r/o syphilis as a precaution) Continue Valtrex~ refill provided 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 Nursing Notes were all reviewed and agreed with or any disagreements were addressed in the HPI. MEDICAL HISTORY Past Medical History[1] SURGICAL HISTORY Surgical History[2] CURRENT MEDICATIONS Previous Medications NABUMETONE (RELAFEN) 750 MG ORAL TABLET TAKE 1 TABLET BY MOUTH TWICE A DAY VALACYCLOVIR (VALTREX) 1 GRAM ORAL TABLET Take 1 Tablet by mouth 2 times daily. VENLAFAXINE (EFFEXOR-XR) 75 MG ORAL CAPSULE, SUST. RELEASE 24 HR Take 1 Capsule by mouth daily. ALLERGIES Cymbalta [duloxetine] and Nickel FAMILYHISTORY Family History[3] SOCIAL HISTORY Social History[4] REVIEW OF SYSTEMS: Review of Systems Constitutional: Negative for activity change, appetite change and fever. HENT: Negative for congestion and rhinorrhea. Respiratory: Negative for chest tightness and shortness of breath. Cardiovascular: Negative for chest pain and palpitations. Gastrointestinal: Negative for abdominal pain, constipation, diarrhea, nausea and vomiting. Genitourinary: Negative for dysuria, flank pain, hematuria, menstrual problem, pelvic pain, urgency, vaginal discharge and vaginal pain. Musculoskeletal: Negative for back pain and neck pain. Skin: Negative for rash and wound. Neurological: Negative for dizziness, syncope and headaches. Positives and Pertinent negatives as per HPI. PHYSICAL EXAM: Vitals: 07/07/25 0006 07/07/25 0011 07/07/25 0012 BP: 142/65 Pulse: 68 Resp: 18 Temp: 97.7 ??F (36.5 ??C) TempSrc: Oral SpO2: 100% Physical Exam Constitutional: Appearance: Normal appearance. She is not ill-appearing. HENT: Head: Normocephalic and atraumatic. Nose: Nose normal. No congestion. Mouth/Throat: Mouth: Mucous membranes are moist. Pharynx: Oropharynx is clear. Eyes: General: Right eye: No discharge. Left eye: No discharge. Conjunctiva/sclera: Conjunctivae normal. Pupils: Pupils are equal, round, and reactive to light. Cardiovascular: Rate and Rhythm: Normal rate and regular rhythm. Pulmonary: Effort: Pulmonary effort is normal. No respiratory distress. Breath sounds: No wheezing. Abdominal: General: Abdomen is flat. Bowel sounds are normal. There is no distension. Tenderness: There is no abdominal tenderness. Genitourinary: General: Normal vulva. Comments: Patient does have some vaginal dryness, and some irritation with speculum insertion despite lubrication use. I see no obvious injuries, lesions, outbreaks, masses. She had discomfort with retracting the speculum. No obvious significant discharge. No bleeding whatsoever in the vaginal canal. Chaperoned by ARLETH Sloan. Musculoskeletal: Cervical back: Normal range of motion. No rigidity or tenderness. Right lower leg: No edema. Left lower leg: No edema. Skin: General: Skin is warm and dry. Neurological: General: No focal deficit present. Mental Status: She is alert and oriented to person, place, and time. Psychiatric: Mood and Affect: Mood normal. Thought Content: Thought content normal. PROCEDURES: Unless otherwise noted below, none. Procedures MEDICATIONS: Medications - No data to display MEDICAL DECISION MAKING: Patient is a 45 y.o. female with a significant PMHx of HSV, HPV, and previous hysterectomy, here inthe Emergency Department today with what sounds like very scant spotting. Here in the ER, patient has no pain whatsoever. She is concerned she is going through menopause. Otherwise, on physical exam,there is some vaginal dryness noted, but I see no obvious signs of trauma, infection, masses, or any significant abnormal tissue at least on my exam, although she is irritated with simple pelvic exam. Discussed vaginal estrogen to see if this helps with any sort of vaginal dryness or atrophy. Otherwise, she is asking about ways to help prevent HSV outbreaks. I see no obvious outbreak right now, but discussed L-lysine. She says she has plenty of Valtrex at home. Discharged home in stable condition. Strict return precaution Saturday at length. Follow-up with OB and PCP. Patient feels very comfortable this plan. CLINICAL IMPRESSION: 1. Vaginal spotting DISPOSITION: I discussed the results, including any incidental findings, with patient and through shared decision making; Disposition today from the ED will be: Discharge to home in fair condition. Questions answered. They are agreeable to plan and express understanding of plan. SOCIAL DETERMINANTS OF HEALTH Social Determinants of Health significantly impacting pt treatment and diagnosis [] Tobacco Use - Patient's tobacco use was dicussed, and willingness to quit assessed. Advised impacts of smoking and methods/skills for cessation with resources. [] Alcohol Use [] Financial Resource Strain [] Food Insecurity [] Transportation Needs, Lyft, bus pass, taxi provided [] Physical Activity [] Stress/Mental health [] Intimate Partner Violence [] Language barrier, AV artificial glass eye maker used for HPI, Assessment, POC, DC. [] Housing Instability CRITICAL CARE: Total critical care time is 00 minutes, which excludes separately billable procedures and updating family. Time spent is specifically for management of the presenting complaint and symptoms initially, direct bedside care, reevaluation, review of records, and consultation. There was a high probability of clinically significant life-threatening deterioration in the patient's condition, which required my urgent intervention. Ximena Hubbard DO, am the primary attending of record and contributed the evaluation and treatment of emergent care for this encounter. This chart was generated in part by using Geogoer Dictation system and may contain errors related tothat system including errors in grammar, punctuation, and spelling, as well as words and phrases that may be inappropriate. If there are any questions or concerns please feel free to contact the dictating provider for clarification. XIMENA STRAUSS DO (electronically signed) This chart was completed using voice recognition technology and may contain unintended errors [1] Past Medical History: Diagnosis Date Anemia chronic, iron infusion 06/2021 Anxiety Encounter for blood transfusion after delivery in 2017 - pt was sent home after C/S & and returned that evening for a blood transfusion Group B streptococcal infection Headache(784.0) migraines Heartburn History of gestational diabetes 2019 GDM - with 2, 3 & 2020 Hydronephrosis of right kidney 05/10/2022 Irritable bowel syndrome Motion sickness Nephrolithiasis 05/10/2022 PCOS (polycystic ovarian syndrome) 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 Right ureteral stone 05/10/2022 Sepsis secondary to UTI (HCC) 05/10/2022 Shortness of breath with anxiety Trauma 09/29/2019, see ER notes [2] Past Surgical History: Procedure Laterality Date ABDOMEN SURGERY APPENDECTOMY N/A 10/13/2018 [facility] LAPAROSCOPIC APPENDECTOMY; Surgeon: Bebeto Payan MD; Location: [facility]; Service: General SECTION 2002 SECTION N/A 06/17/2013 REPEAT SECTION (39)with a low transverse uterine incision at 0834 SECTION Bilateral 05/04/2015 REPEAT SECTION (37) low transverse uterine incision at 1059 SECTION N/A 12/12/2016 REPEAT SECTION with low transverse uterine incision at 1249; Surgeon: Shania Yun MD; Location: [facility]; Service: Gynecology SECTION N/A 02/05/2020 REPEAT SECTION with low transverse uterine incision at 1040 ; Surgeon: Louis Brambila MD; Location: [facility]; Service: Gynecology COLPOSCOPY Dr. Giles CYSTOSCOPY 12/07/2021 Surgeon: Louis Brambila MD; Location: [facility]; Service: Gynecology CYSTOSCOPY Right 05/11/2022 CYSTOSCOPY RIGHT STENT PLACEMENT; Surgeon: Sharad Salvador MD; Location: [facility]; Service: Urology HERNIA REPAIR 12 yo umbilical HYSTERECTOMY Bilateral 12/07/2021 [facility] TOTAL LAPAROSCOPIC HYSTERECTOMY, BILATERAL SALPINGECTOMY, CYSTOSCOPY, lysis of adhesions; Surgeon: Louis Brambila MD; Location: [facility]; Service: Gynecology URETEROSCOPY Right 05/18/2022 cystoscopy, right stent removal, right ureteroscopy, ; Surgeon: Sharad Salvador MD; Location: [facility]; Service: Urology [3] Family History Problem Relation Age of Onset Diabetes Mother COPD Mother Ovarian Cancer Mother 27 before 27, had total hysterectomy Asthma Mother Heart Attack Maternal Grandmother older than 55 Heart Disease Maternal Grandmother Diabetes Maternal Grandmother Stroke Maternal Grandfather Heart Disease Maternal Grandfather Unknown Father dad was adopted, she is estranged from him Seizures Paternal Grandfather Cancer Maternal Aunt Colon Cancer Maternal Aunt [4] Social History Tobacco Use Smoking status: Former Current packs/day: 0.00 Average packs/day: 0.5 packs/day for 29.3 years (14.7 ttl pk-yrs) Types: Cigarettes Start date: 07/29/1994 Quit date: 11/26/2023 Years since quittin.6 Passive exposure: Never Smokeless tobacco: Never Tobacco comments: started age 15, off and on, stopped with all pregnancies Vaping Use Vaping status: Every Day Substances: Nicotine Devices: Disposable Substance Use Topics Alcohol use: No Alcohol/week: 0.0 oz Drug use: No Ximena Strauss DO 07/07/25 004 documented in this encounter Plan of Treatment [...] as of this encounter Visit Diagnoses Diagnosis Vaginal spotting- Primary Other specified noninflammatory disorder of vagina documented in this encounter Additional Health Concerns Assessment Noted Time PHQ-9 Depression Total Score: 18 024 9:00 AM EST PHQ-2 Depression Total Score: 6 07/16/20 24 9:00 AM EST documented as of this encounter Care Teams Biscuit Machine Operator Relationship Specialty Start Date End Date Raleigh Christiansen MD PCP - Hematology/Oncology Internal Medicine-Hematology and Oncology 03/10/20 Karri Rosas MD [address] [place] [address] M[place] BLAN[place] [address] PCP - General Family Medicine 07/16/24 Raleigh Christiansen MD Medical Oncologist Internal Medicine-Hematology and Oncology 06/12/21 Sharad Salvador MD Urology 05/10/22 documented as of this encounter
[2025-07-07 21:21] VITALS: BP 120/70; PULSE 68; RESP 20; TEMP 36.9; O2SAT 100; BMI 36.5
--- NOTE | 2025-07-07 21:44 | PC.NURSE ---
abdomen rounded +bowel sounds x4 Tenderness in lower quadrants
--- OUTSIDE RECORDS SUMMARY | 2025-07-07 21:50 | XMS_ITS | Encounter Summary ---
Author Organization [facility] [place] [address] Care Team Providers Care Generator Technician Name Role Phone Raleigh Christiansen MD Unavailable Unavailable Raleigh Christiansen MD Unavailable Unavailable Sharad Salvador MD Unavailable Karri Rosas MD Primary Care Provider [phone] Encounter Details Date Type Department Care Team (Latest Contact Info) Description 07/07/2025 Travel Social History Tobacco Use Types Packs/Day Years [...] Date Recorded PHQ-2 Total Score 6 07/16/2024 [facility] [place] of Occupat ional Health - Occupational Stress [...] Diagnoses Not on filedocumented in this encounter Additional Health Concerns Assessment Noted Time PHQ-9 Depression Total Score: 18 024 9:00 AM EST PHQ-2 Depression Total Score: 6 07/16/20 24 9:00 AM EST documented as of this encounter Care Teams Generator Technician Relationship Specialty Start Date End Date Raleigh Christiansen MD PCP - Hematology/Oncology Internal Medicine-Hematology and Oncology 03/10/20 Karri Rosas MD [address] [place] [address] [place] [address] PCP - General Family Medicine 07/16/24 Raleigh Christiansen MD Medical Oncologist Internal Medicine-Hematology and Oncology 06/12/21 Sharad Salvador MD Urology 05/10/22 documented as of this encounter
--- OUTSIDE RECORDS SUMMARY | 2025-07-07 21:51 | XMS_ITS | Encounter Summary ---
Author Organization [facility] Address [address] [place] [address] Care Team Providers Care Marble Mechanic Helper Name Role Phone Raleigh Christiansen MD Unavailable Unavailable Raleigh Christiansen MD Unavailable Unavailable Sharad Salvador MD Unavailable Karri Rosas MD Primary Care Provider [phone] Reason for Visit * Reason Comments Medication Refill Encounter Details Date Type Department Care Team (Late st Contact Info) Description 05/20/2025 Refill [facility] [address] [facility] [address] [place] [address] Chris Cuellar MD [address] [address] Medication Refill Social History Tobacco Use Types Packs/Day Years [...] Date Recorded PHQ-2 Total Score 6 07/16/2024 [facility] [place] of Occupat ional Health - Occupational Stress [...] Refills Last Filled Start Date End Date nabumetone (RELAFEN) 750 mg Oral TabletIndications: Sprain of left knee, unspecified ligament, initial encounter,Bursitis of left knee, unspecified bursa TAKE 1 TABLET BY MOUTH TWICE A DAY 60 Tablet 05/20/2025 06/28/2025 documented in this encounter Plan of Treatment [...] as of this encounter Visit Diagnoses Diagnosis Sprain of left knee, unspecified ligament, initial encounter Bursitis of left knee, unspecified bursa documented in this encounter Discontinued Medications Medication Sig Discontinue Reason Start Date End Da te nabumetone (RELAFEN) 750 mg Oral TabletIndications:Sprain of left knee, unspecified ligament, initial encounter,Bursitis of left knee, unspecified bursa Take 1 Tablet by mouth 2 times daily. 04/22/2025 05/20/2025 documented as of this encounter Additional Health Concerns Assessment Noted Time PHQ-9 Depression Total Score: 18 024 9:00 AM EST PHQ-2 Depression Total Score: 6 07/16/20 24 9:00 AM EST documented as of this encounter Care Teams Marble Mechanic Helper Relationship Specialty Start Date End Date Raleigh Christiansen MD PCP - Hematology/Oncology Internal Medicine-Hematology and Oncology 03/10/20 Karri Rosas MD [address] [place] [address] [address] [place], M[place] [address] PCP - General Family Medicine 07/16/24 Raleigh Christiansen MD Medical Oncologist Internal Medicine-Hematology and Oncology 06/12/21 Sharad Salvador MD Urology 05/10/22 documented as of this encounter
--- OUTSIDE RECORDS SUMMARY | 2025-07-07 21:51 | XMS_ITS | Encounter Summary ---
Author Organization [place] [place] [address] Care Team Providers Care Horticulture Superintendent Name Role Phone Raleigh Christiansen MD Unavailable Unavailable Raleigh Christiansen MD Unavailable Unavailable Sharad Salvador MD Unavailable Karri Rosas MD Primary Care Provider [phone] Reason for Visit * Reason Onset Date Comments 911/Red Flag 04/21/2025 Severe Left Flan k Pain Encounter Details Date Type Department Care Team (Late st Contact Info) Description 04/21/[address] [facility] [place] [address] Karri Rosas MD [address] [place] [address] [place] [address] 911/Red Flag (Severe Left Flank Pain) Social History Tobacco Use Types Packs/Day Years [...] Date Recorded PHQ-2 Total Score 6 07/16/2024 [facility] [place] of Occupat ional Health - Occupational Stress [...] Bella Harrison RN documented in this encounter Miscellaneous Notes * Telephone Encounter - Nette Lock MA - 04/22/2025 8:25 AM EDT Patient states she still needs appointment to address something else. * Telephone Encounter - Karri Rosas MD - 04/22/2025 8:21 AM EDT Please verify with the patient whether or not she still needs the appointment today for 1015? She went to the ER last night on not sure if she still needs to be seen today in office or not. * Telephone Encounter - Deborah Romero RMA - 04/21/2025 3:19 PM EDT FYI * Telephone Encounter - Doreen Vyas MA - 04/21/2025 3:05 PM EDT Select the most appropriate reason for this telephone message: 911 Emergency Who is calling (be specific): Patient Symptoms/Situation: Pt reports about 1 hr ago while at work she developed sharp stabbing pain of left flank area. Pt states she's worried about a kidney stone, and doesn't think she will make it through pain if that is what is the cause. Pt did deny any CP, SOB, or Dizziness at time of call. Were emergency services dispatched: No If No, was the patient advised to call 911 or proceed to the nearest emergency department if they are experiencing a life threatening condition: Yes Return Method of Communication: Phone Call Was patient transferred to Nurse Triage for additional help? N/A Additional Information: Per protocol of severe sudden onset of pain pt advised to proceed to ED. Ptdeclined ED at this moment stating she will wait until her kids get off the bus to see how she's doing. Pt also noted she is scheduled for appt tomorrow, but cc still advised pt to proceed to ED due to severity of pain. Please make pcp aware ,thank you. documented in this encounter Plan of Treatment [...] EST PHQ-2 Depression Total Score: 6 07/16/20 9:00 AM EST documented as of this encounter Care Teams Horticulture Superintendent Relationship Specialty Start Date End Date Raleigh Christiansen MD PCP - Hematology/Oncology Internal Medicine-Hematology and Oncology 03/10/20 Karri Rosas MD [address] [place] [address] [place]AN[place] [address] PCP - General Family Medicine 07/16/24 Raleigh Christiansen MD Medical Oncologist Internal Medicine-Hematology and Oncology 06/12/21 Sharad Salvador MD Urology 05/10/22 documented as of this encounter
--- OUTSIDE RECORDS SUMMARY | 2025-07-07 21:51 | XMS_ITS | Encounter Summary ---
Author Organization [facility] [place] [place] [address] Care Team Providers Care Behavioral Services Tech Name Role Phone Raleigh Christiansen MD Unavailable Unavailable Raleigh Christiansen MD Unavailable Unavailable Sharad Salvador MD Unavailable Karri Rosas MD Primary Care Provider [phone] Encounter Details Date Type Department Care Team (Latest Contact Info) Description 05/14/2025 Travel Social History Tobacco Use Types Packs/Day [...] Date Recorded PHQ-2 Total Score 6 07/16/2024 [facility] of Occupat ional Health - Occupational Stress [...] documented as of this encounter Care Teams Behavioral Services Tech Relationship Specialty Start Date End Date Raleigh Christiansen MD PCP - Hematology/Oncology Internal Medicine-Hematology and Oncology 03/10/20 Karri Rosas MD [address] [place] [address] [place] [address] PCP - General Family Medicine 07/16/24 Raleigh Christiansen MD Medical Oncologist Internal Medicine-Hematology and Oncology 06/12/21 Sharad Salvador MD Urology 05/10/22 documented as of this encounter
--- OUTSIDE RECORDS SUMMARY | 2025-07-07 21:51 | XMS_ITS | Clinical Summary ---
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 ligament, initial encounter Bursitis of left knee, unspecified bursa HEMOGLOBIN A1C Routine 04/22/2025 10:31 AM EDT BMI 36.0-36.9,adult LH/FSH Routine 04/22/2025 10:31 AM EDT BMI 36.0-36.9,adult Hot flashes TSH REFLEX TO FT4 Routine 04/22/2025 10: 31 AM EDT BMI 36.0-36.9,adult Hot flashes BASIC METABOLIC PANEL Routine 04/22/2025 10:31 AM EDT Benign paroxysmal positional vertigo due to bilateral vestibular disorder CT ABD PEL ED FAST W CONTRAST STAT 04/21/2025 5:47 PM EDT COMPREHENSIVE METABOLIC PANEL STAT 04/21/2025 4:25 PM EDT CBC WITH DIFF STAT 04/21/2025 4:25 PM EDT URINALYSIS REFLEX STAT 04/21/2025 4:1 8 PM EDT UA W/REFLEX TO CULTURE STAT 4:18 PM EDT URINE CULTURE (NO STAIN) STAT 04/21/2025 4:18 PM EDT EXTRA FERNANDEZ URINE CX STAT 04/21/2025 4 :18 PM EDT SALINE LOCK IV STAT 04/21/2025 4:09 PM EDT MM MAMMO DIGITAL GURVINDER SCREEN BILAT Routine 09/10/2024 8:56 AM EST Encounter for screening mammogram for breast cancer from Last 3 Months or Most Recently Relevant to Health Maintenance Results * MRI KNEE LEFT WO CONTRAST (06/02/2025 5:47 PM EST) Narrative [facility] - 06/02/2025 5:47 PM EST Please see the scanned MRI report associated with this order on the Imaging tab of the patient's chart. Chris Cuellar MD IMG MRI ORDERABLES Final Result Performing Organization Address [facility] Co de Phone Number [facility] * VA ARTHROCENTESIS ASPIR&/INJ MAJOR JT/BURSA W/O US (04/22/2025 3:15 PM EDT) Narrative [facility] - 04/22/2025 3:15 PM EDT Hortensia Brown MA 05/11/2025 6:31 AM Large Joint Injection/Arthrocentesis: L knee on 04/22/2025 3:15 PM Indications: pain Details: 22 G needle Medications: 1 mL BUPivacaine HCl 0.25 % (2.5 mg/mL); 2 mg betamethasone acet-betamethasone sodium phos 6 mg/mL Outcome: tolerated well, no immediate complications Procedure, treatment alternatives, risks and benefits explained, specific risks discussed. Consent was given by the patient. Immediately prior to procedure a time out was called to verify the correct patient, procedure, equipment, manager decision support and site/side marked as required. Patient was prepped and draped in the usual sterile fashion. Chris Cuellar MD PROCEDURE/MINOR SURGICAL ORDERABLES Final Result Performing Organization Address City/[facility] Co de Phone Number [facility] * LH/FSH (04/22/2025 10:31 AM EDT) LH 12.20 mIU/mL 04/22/2025 4:21 PM EDT [facility] Comment: Suggested Reference Ranges (mIU/mL) Females Follicular Phase 2.4 - 12.6 Ovulation Phase 14.0 - 95.6 Luteal Phase 1.0 - 11.4 Postmenopause 7.7 - 58.5 Males 1.7 - 8.6 FSH 10.90 mIU/mL 04/22/2025 4:21 PM EDT [facility] Comment: Suggested Reference Range (mIU/mL) Females Follicular Phase 3.5 - 12.5 Ovulation Phase 4.7 - 21.5 Luteal Phase 1.7 - 7.7 Postmenopause 25.8 - 134.8 Males 1.5 - 12.4 Blood VENOUS BLOOD / Unknown Venipuncture / Unknown 04/22/2025 10:31 AM EDT 04/22/2025 10:31 AM EDT Narrative [facility] - 04/22/2025 4:21 PM EDT Ingestion of debora doses of biotin (>5 mg/day) taken within 8 hours of drawing blood sample can interfere with this immunoassay test. Karri Rosas MD IMMUNOLOGY ORDERABLES Final Re sult [facility] [address] [facility] , [place] [address] * TSH REFLEX TO FT4 (04/22/2025 10:31 AM EDT) TSH Reflex 0.302 0.270 - 4.200 mcIU/mL 04/22/2025 4:20 PM EDT [facility] Blood VENOUS BLOOD / Unknown Venipuncture / Unknown 04/22/2025 10:31 AM EDT 04/22/2025 10:31 AM EDT Narrative [facility] - 04/22/2025 4:20 PM EDT Ingestion of debora doses of biotin (>5 mg/day) taken within 8 hours of drawing blood sample can interfere with this immunoassay test. Karri Rosas MD CHEMISTRY ORDERABLES Final Res ult Performing Organization Address [facility] de Phone Number [facility] [employer] [address] , [address] [id number] * HEMOGLOBIN A1C (04/22/2025 10:31 AM EDT) Hgb A1C 5.2 4.2 - 5.6 % 04/22/2025 5:35 PM EDT [facility], [facility] Est. Avg Glucose 103 mg/dL 04/22/2025 5:35 PM EDT [facility] [employer], [facility] Blood VENOUS BLOOD / Unknown Venipuncture / Unknown 04/22/2025 10:31 AM EDT 04/22/2025 10:31 AM EDT Narrative [facility] [employer], [facility] - 04/22/2025 5:35 PM EDT REFERENCE RANGE: Normal: 4.0-5.6% Pre-diabetes: 5.7-6.4% Provisional diagnosis of diabetes: >6.4% Hgb F>10% and anything which shortens red cell survival, such as hemolytic anemia, or unstable hemoglobin variants such as HbSS, HbSC, or HbCC, will lower the HbA1c value associated with a given level of glycemic control. Karri Rosas MD CHEMISTRY ORDERABLES Final Res ult Performing Organization Address [facility] de Phone Number [facility] [employer] [address] , [place] [address] * BASIC METABOLIC PANEL (04/22/2025 10:31 AM EDT) Sodium 143 136 - 145 mmol/L 04/22/2025 4:20 PM EDT [facility] Potassium 3.6 3.5 - 5.0 mmol/L 04/22/2025 4:20 PM [address] [facility] Chloride 107 98 - 107 mmol/L 04/22/2025 4:20 PM EDT [facility] Total CO2 22 22 - 29 mmol/L 04/22/2025 4:20 PM EDT [facility] Anion Gap 14 7 - 16 mmol/L 04/22/2025 4:20 PM EDT [facility] Calcium 8.9 8.6 - 10.4 mg/dL 04/22/2025 4:[address] [facility] Glucose Lvl 91 70 - 99 mg/dL 04/22/2025 4:20 PM EDT [facility] BUN 12 6 - 20 mg/dL 04/22/2025 4:20 PM EDT [facility], [facility] Creatinine 0.55 0.51 - 1.30 mg/dL 04/22/2025 4:20 PM EDT [facility] eGFR (CKD-EPIcr 2020) 116 >=60 mL/min/1.7 3 m2 04/22/2025 4:20 PM EDT [facility] Comment:Estimated GFR was ca lculated using the CKD-EPIcr (2020) equation refit without race. The equation is recommended by the National Kidney Foundation - [place] [employer] of Nephrology Task Force. Blood VENOUS BLOOD / Unknown Venipuncture / Unknown 04/22/2025 10:31 AM EDT 04/22/2025 10:31 AM EDT us Karri Rosas MD CHEMISTRY ORDERABLES Final Res ult [facility] [address] [facility] , [address] [place] [id number] * CT ABD PEL ED FAST W CONTRAST (04/21/2025 5:47 PM EDT) Anatomical Region Laterality Modality Abdomen, Pelvis Computed Tomogra phy 04/21/2025 5:47 PM EDT Impressions 04/21/2025 6:01 PM EDT Impression: No acute CT abnormality. - Note: Radiology results need to be interpreted within a comprehensive clinical context. If you have questions about the radiology report, please contact the office of the ordering clinician. Narrative 04/21/2025 6:[address] ABDOMEN AND PELVIS WITH CONTRAST (FAST), 04/21/2025 5:47 PM CLINICAL HISTORY: -left flank pain. COMPARISON: None. PROCEDURE COMMENTS: Multi-detector CT scanning of the abdomen and pelvis with multiplanar reformatting per expedited protocol. Isovue 370 IV contrast given as recorded in EPIC. Dose 1 : CT DLP Total : 497.55 mGycm DLP Spiral Max : 493.52 mGycm Maximum CTDI Vol : 11.06 mGy SSDE : 8.9586 mGy SSDE Diameter : 41.4 cm SSDE Source : Lat FINDINGS: Lower chest: No acute abnormality. Liver: Normal. Gallbladder: Normal. Biliary tract: Normal for age. Pancreas: Normal. Spleen: Normal. Adrenals: Normal. Kidneys: Normal. Gastrointestinal tract: No acute small bowel findings.Grossly collapsed stomach. Appendectomy. Peritoneum: No pneumoperitoneum or pathologic free fluid. Mesentery and retroperitoneum: No adenopathy or aneurysm. Pelvic organs: No acute findings.Surgically absent uterus. Abdominal wall and diaphragm: Diastasis of the rectus abdominis sheath with a wide based bulge containing unobstructed small bowel and large bowel. Musculoskeletal: Unremarkable for age. Procedure Note Jonnie Goldstein MD - 04/21/2025 CT ABDOMEN AND PELVIS WITH CONTRAST (FAST), 04/21/2025 5:47 PM CLINICAL HISTORY: -left flank pain. COMPARISON: None. PROCEDURE COMMENTS: Multi-detector CT scanning of the abdomen and pelviswith multiplanar reformatting per expedited protocol. Isovue 370 IV contrastgiven as recorded in EPIC. Dose 1 : CT DLP Total : 497.55 mGycm DLP Spiral Max : 493.52 mGycm Maximum CTDI Vol : 11.06 mGy SSDE : 8.9586 mGy SSDE Diameter : 41.4 cm SSDE Source : Lat FINDINGS: Lower chest: No acute abnormality. Liver: Normal. Gallbladder: Normal. Biliary tract: Normal for age. Pancreas: Normal. Spleen: Normal. Adrenals: Normal. Kidneys: Normal. Gastrointestinal tract: No acute small bowel findings.Grossly collapsedstomach. Appendectomy. Peritoneum: No pneumoperitoneum or pathologic free fluid. Mesentery and retroperitoneum: No adenopathy or aneurysm. Pelvic organs: No acute findings.Surgically absent uterus. Abdominal wall and diaphragm: Diastasis of the rectus abdominis sheathwith a wide based bulge containing unobstructed small bowel and large bowel. Musculoskeletal: Unremarkable for age. IMPRESSION: Impression: No acute CT abnormality. - Note: Radiology results need to be interpreted within a comprehensiveclinical context. If you have questions about the radiology report, please contactthe office of the ordering clinician. us Ro Estrada MD IM CT ORDERABLES Final Result * CBC WITH DIFF (04/21/2025 4:25 PM EDT) WBC 6.6 3.7 - 10.3 x10(3)/mcL 04/21/2025 4:34 PM EDT [facility] RBC 4.48 3.90 - 5.20 x10(6)/mcL 04/21/2025 4:34 PM EDT [facility] Hgb 13.0 11.2 - 15.7 g/dL 04/21/2025 4:34 PM EDT [facility] Hct 39.6 34.0 - 45.0 % 04/21/2025 4:34 PM EDT [facility] MCV 88.4 80.0 - 100.0 fL 04/21/2025 4:34 PM EDT [facility] MCH 29.0 26.0 - 34.0 pg 04/21/2025 4:34 PM EDT [facility] MCHC 32.8 30.7 - 35.5 g/dL 04/21/2025 4:34 PM EDT [facility] RDW 12.8 <=14.9 % 04/21/2025 4:34 PM EDT [facility] Platelet 275 155 - 369 x10(3)/mcL 04/21/2025 4:34 PM EDT [facility] MPV 10.3 8.8 - 12.5 fL 04/21/2025 4:34 PM EDT [facility] Neut Percent 66.1 % 04/21/2025 4:34 PM EDT [facility] Comment:Neutrophils equals s egs plus bands Imm Gran% 0.2 % 04/21/2025 4:34 PM EDT [facility] Comment:Automated count of m etamyelocytes, myelocytes and promyelocytes. Lymph Percent 23.0 % 04/21/2025 4:34 PM EDT [facility] [place] Percent 8.9 % 04/21/2025 4:34 PM EDT [facility] Eos Percent 1.2 % 04/21/2025 4:34 PM EDT [facility] Baso Percent 0.6 % 04/21/2025 4:34 PM EDT [facility] Neut # 4.4 1.6 - 6.1 x10(3)/[facility] 04/21/2025 4:34 PM EDT [facility] Comment:Neutrophils equals s egs plus bands IMMGRAN# 0.0 0.0 - 0.1 x10(3)/[facility] 04/21/2025 4:34 PM EDT [facility] Comment:Automated count of m etamyelocytes, myelocytes and promyelocytes. An absolute IG <0.1 is reported as 0.0. Lymph # 1.5 1.2 - 3.9 x10(3)/[facility] 04/21/2025 4:34 PM EDT [facility] [place] # 0.6 0.3 - 0.9 x10(3)/[facility] 04/21/2025 4:34 PM EDT [facility] Eos# 0.1 0.0 - 0.5 x10(3)/[facility] 04/21/2025 4:34 PM EDT [facility] Baso # 0.0 0.0 - 0.1 x10(3)/[facility] 04/21/2025 4:34 PM EDT [facility] Blood VENOUS BLOOD / Unknown Venipuncture / Unknown 04/21/2025 4:25 PM EDT 04/21/2025 4:30 PM EDT us Ro Estrada MD HEMATOLOGY ORDERABLES Final Re sult [facility] [address] [place] [address] * COMPREHENSIVE METABOLIC PANEL (04/21/2025 4:25 PM EDT) Sodium 140 136 - 145 mmol/L 04/21/2025 4:50 PM EDT [facility] Potassium 3.6 3.5 - 5.0 mmol/L 04/21/2025 4:50 PM EDT [facility] Chloride 104 98 - 107 mmol/L 04/21/2025 4:50 PM [facility] Total CO2 25 22 - 29 mmol/L 04/21/2025 4:50 PM [facility] Anion Gap 11 7 - 16 mmol/L 04/21/2025 4:50 PM [facility] Calcium 9.0 8.6 - 10.4 mg/dL 04/21/2025 4:50 PM [facility] Glucose Lvl 78 70 - 99 mg/dL 04/21/2025 4:50 PM [facility] BUN 11 6 - 20 mg/dL 04/21/2025 4:50 PM [facility] Creatinine 0.58 0.51 - 1.30 mg/dL 04/21/2025 4:50 PM [facility] Albumin 4.4 3.5 - 5.2 gm/dL 04/21/2025 4:50 PM [facility] Total Protein 7.4 6.4 - 8.3 gm/dL 04/21/2025 4:50 PM [facility] Bili Total 0.4 0.2 - 1.3 mg/dL 04/21/2025 4:50 PM [facility] ALT 15 <=41 U/L 04/21/2025 4:50 PM [facility] AST 16 <=40 U/L 04/21/2025 4:50 PM [facility] Alk Phos 81 36 - 123 U/L 04/21/2025 4:50 PM [facility] eGFR (CKD-EPIcr 2020) 115 >=60 mL/min/1.7 3 m2 04/21/2025 4:50 PM [facility] Comment:Estimated GFR was ca lculated using the CKD-EPIcr (2020) equation refit without race. The equation is recommended by the National Kidney Foundation - [place] [employer] of Nephrology Task Force. Blood VENOUS BLOOD / Unknown Venipuncture / Unknown 04/21/2025 4:25 PM EDT 04/21/2025 4:30 PM EDT us Ro Estrada MD CHEMISTRY ORDERABLES Final Res ult [facility] [address] [place] [id number] * (ABNORMAL) URINALYSIS REFLEX (04/21/2025 4:18 PM EDT) UA Color Yellow 04/21/2025 4:30 PM EDT [facility] UA Appear Clear Clear 04/21/2025 4:30 PM EDT [facility] UA Glucose Negative Negative mg/dL 04/21/2025 4:30 PM EDT [facility] UA Ketones Negative Negative mg/dL 04/21/2025 4:30 PM EDT [facility] UA Blood Negative Negative 04/21/2025 4:30 PM EDT [facility] UA pH 7.0 5.0 - 8.0 pH 04/21/2025 4:30 PM EDT [facility] UA Protein Negative Negative mg/dL 04/21/2025 4:30 PM EDT [facility] UA Urobilinogen 0.2 <=1 mg/dL 4:30 PM EDT [facility] UA Bili Negative Negative 04/21/2025 4:30 PM EDT [facility] UA Nitrite Negative Negative 04/21/2025 4:30 PM EDT [facility] UA Leuk Est Trace(A) Negative 04/21/2025 4:30 PM EDT [facility] UA Spec Grav 1.010 1.001 - 1.035 no units 04/21/2025 4:30 PM EDT [facility] Comment:Reference range tawanda d for random specimens only. UA WBC 2 0 - 4 /HPF 04/21/2025 4:30 PM EDT [facility] UA RBC 0 0 - 3 /HPF 04/21/2025 4:30 PM EDT [facility] UA Squam Epi Rare /LPF 04/21/2025 4:30 PM EDT [facility] Urine STRUCTURE OF URINARY TRACT PROPER / Unknown 04/21/2025 4:18 PM EDT 04/21/2025 4:20 PM EDT us Ro C Sean MD URINE ORDERABLES Final Result Performing Organization Address City/[facility]/ZIP Co de Phone Number [facility] [address] [place] [address] * EXTRA FERNANDEZ URINE CX (04/21/2025 4:18 PM EDT) Urine STRUCTURE OF URINARY TRACT PROPER / Unknown 04/21/2025 4:18 PM EDT 04/21/2025 4:20 PM EDT Ro Estrada MD MICROBIOLOGY - GENERAL ORDERAB LES Final Result Performing Organization Address City/[facility]/ZIP Co de Phone Number [facility] [address] [place], [place] [id number] * URINE CULTURE (NO STAIN) (04/21/2025 4:18 PM EDT) Culture Multiple bacterial species isolated from urine consistent with urogenital commensal organisms. 04/23/2025 12:02 PM EDT [facility] Urine STRUCTURE OF URINARY TRACT PROPER / Unknown 04/21/2025 4:18 PM EDT 04/21/2025 4:30 PM EDT Ro Estrada MD MICROBIOLOGY - GENERAL ORDERAB LES Final Result Performing Organization Address City/[facility] Co de Phone Number [facility] [address] [place] [address] , [place] [address] * (ABNORMAL) MM MAMMO DIGITAL GURVINDER SCREEN BILAT (09/10/2024 8:56 AM EST) Anatomical Region Laterality Modality Breast Bilateral Mammography 09/10/2024 8:56 AM EST Impressions 09/14/2024 8:56 AM EST Incomplete: Need additional imaging evaluation ([id number]) RECOMMENDATION: Additional Imaging Breast Ultrasound Right COMMENTS: Narrative 09/14/2024 8:56 AM EST EXAM: MM MAMMO DIGITAL GURVINDER SCREEN BILAT EXAM DATE: 09/10/2024 8:56 AM INDICATION: Z12.31-Encounter for screening mammogram for malignant neoplasm of [id number] COMPARISON STUDIES: No comparison mammographic studies. TISSUE DENSITY: There are scattered areas of fibroglandular density. FINDINGS: Unremarkable left breast exam. No suspicious calcifications. Indeterminate 1 cm nodule, lower inner quadrant, right breast. Follow-up targeted ultrasound imaging requested. Procedure Note Arun Jeffery DO - 09/14/2024 EXAM: MM MAMMO DIGITAL GURVINDER SCREEN BILAT EXAM DATE: 09/10/2024 8:56 AM INDICATION: Z12.31-Encounter for screening mammogram for malignantneoplasm of [id number] COMPARISON STUDIES: No comparison mammographic studies. TISSUE DENSITY: There are scattered areas of fibroglandular density. FINDINGS: Unremarkable left breast exam. No suspicious calcifications. Indeterminate 1 cm nodule, lower inner quadrant, right breast. Follow-up targeted ultrasound imaging requested. IMPRESSION: Incomplete: Need additional imaging evaluation ([id number]) RECOMMENDATION: Additional Imaging Breast Ultrasound Right COMMENTS: Keven Caitlyn Hidalgo DO [facility] [place] ORDERABLES Final Result from Last 3 Months or Most Recently Relevant to Health Maintenance Insurance [employer] [address] [place] [address] MDR Advance Directives For more information, please contact: [phone] * Full Code (Latest Code Status on File) Date Activated Date Inactivated Comments 05/11/2022 2:48 AM 05/12/2022 7:22 PM * Full Code Date Activated Date Inactivated Comments 05/10/2022 3:26 AM 05/11/2022 2:37 AM * Full Code Date Activated Date Inactivated Comments 02/05/2020 7:58 AM 02/08/2020 5:36 PM * Full Code Date Activated Date Inactivated Comments 12/12/2016 10:47 AM 12/14/2016 7:34 PM * Full Code Date Activated Date Inactivated Comments 05/04/2015 8:50 AM 05/08/2015 2:21 PM Care Teams Division Order Analyst Relationship Specialty Start Date End Date Raleigh Christiansen MD PCP - Hematology/Oncology Internal Medicine-Hematology and Oncology 03/10/20 aKrri Rosas MD [address] [place] [address] [place] [address] PCP - General Family Medicine 07/16/24 Raleigh Christiansen MD Medical Oncologist Internal Medicine-Hematology and Oncology 06/12/21 Sharad Salvador MD Urology 05/10/22
--- OUTSIDE RECORDS SUMMARY | 2025-07-07 21:51 | XMS_ITS | Clinical Summary ---
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 Allergies, Adverse Reactions, Alerts No information available. Results No information available. Plan of Care No information available. Procedures No information available. Vital Signs No information available. Immunizations No information available. Advance Directives No information available.
--- OUTSIDE RECORDS SUMMARY | 2025-07-07 21:51 | XMS_ITS | Encounter Summary ---
Author Organization [facility] Address [address] [place] [address] Care Team Providers Care Custodial Services Manager Name Role Phone Raleigh Christiansen MD Unavailable Unavailable Raleigh Christiansen MD Unavailable Unavailable Sharad Salvador MD Unavailable Karri Rosas MD Primary Care Provider [phone] Reason for Visit * Reason Comments Medication Refill Encounter Details Date Type Department Care Team (Late st Contact Info) Description 06/27/2025 Refill [facility] [address] [facility] [address] [place] [address] Chris Cuellar MD [address] [address] Medication Refill Social History Tobacco Use Types [...] Date Recorded PHQ-2 Total Score 6 07/16/2024 [facility] [place] of Occupat ional Health - Occupational Stress [...] End Date nabumetone (RELAFEN) 750 mg Oral TabletIndications:S prain of left knee, unspecified ligament, initial encounter,Bursitis of left knee, unspecified bursa TAKE 1 TABLET BY MOUTH TWICE A DAY 60 Tablet 06/28/2025 documented in this encounter Plan of [...] 1 TABLET BY MOUTH TWICE A DAY 05/20/2025 06/28/2025 documented as of this encounter Additional Health Concerns Assessment Noted Time PHQ-9 Depression Total Score: 18 024 9:00 AM EST PHQ-2 Depression Total Score: 6 07/16/20 24 9:00 AM EST documented as of this encounter Care Teams Custodial Services Manager Relationship Specialty Start Date End Date Raleigh Christiansen MD PCP - Hematology/Oncology Internal Medicine-Hematology and Oncology 03/10/20 Karri Rosas MD [address] [place] [address] [place] [address] PCP - General Family Medicine 07/16/24 Raleigh Christiansen MD Medical Oncologist Internal Medicine-Hematology and Oncology 06/12/21 Sharad Salvador MD Urology 05/10/22 documented as of this encounter
--- OUTSIDE RECORDS SUMMARY | 2025-07-07 21:51 | XMS_ITS | Encounter Summary ---
Author [place] [address] Care Team Providers Care Leaf Stamper Name Role Phone Raleigh Christiansen MD Unavailable Unavailable Raleigh Christiansen MD Unavailable Unavailable Sharad Salvador MD Unavailable Karri Rosas MD Primary Care Provider [phone] Encounter Details Date Type Department Care Team (Late st Contact Info) Description 04/23/2025 Results Follow-Up SEP [facility] [address] [place] [id number] Karri Rosas MD [address] [place] [address] [place] [id number] BASIC METABOLIC PANEL, TSH REFLEX TO FT4, LH/FSH, HEMOGLOBIN A1C Social History Tobacco Use Types Packs/Day Years [...] Date Recorded PHQ-2 Total Score 6 07/16/2024 [facility] [place] [facility] - Occupational Stress [...] Progress Notes * Karri Rosas MD - 04/23/2025 8:55 AM EDT Her diabetes screen was negative/normal. Kidney function electrolytes were normal. Her hormone levels were normal, no signs of menopause based on her labs results documented in this encounter Plan of Treatment Not on file documented as of this encounter Goals Goal Patient Goal Type Associated Problems Recent Progress Patient-Stated? Author Blood Pressure < 140/90 Blood Pressure 142/65(2024 12:12 AM EST) No Lana Tobias RMA Quit smoking General Yes Deborah El MD BMI (Calculated) < 30 General 36.2(06/10/20 3:40 PM EST) No Lana Tobias RMSuze Maintain a healthy diet, exercise regularly and [...] documented as of this encounter Care Teams Leaf Stamper Relationship Specialty Start Date End Date Raleigh Christiansen MD PCP - Hematology/Oncology Internal Medicine-Hematology and Oncology 03/10/20 Karri Rosas MD [address] [place] [address] MADIE BLANCO [id number] PCP - General Family Medicine 07/16/24 Raleigh Christiansen MD Medical Oncologist Internal Medicine-Hematology and Oncology 06/12/21 Sharad Salvador MD Urology 05/10/22 documented as of this encounter
[2025-07-07 22:01] LABS: Hematocrit 41.8 % (37.0-47.0); Hemoglobin 14.3 g/dL (12.2-16.2); Immature Granulocytes % 0.2 %; Mean Corpuscular HGB Conc 34.2 g/dL (31.8-35.4); Mean Corpuscular Hemoglobin 29.9 pg (27.0-31.2); Mean Corpuscular Volume 87.3 fl (81-99); Nucleated Red Blood Cells % 0 %; Platelet Count 256 K/mm3 (142-424); Red Blood Count 4.79 M/mm3 (4.20-5.40); Red Cell Distribution Width-SD 41.1 fL; White Blood Count 4.9 K/mm3 (4.8-10.8)
[2025-07-07 22:07] LABS: Albumin Level 4.5 g/dl (3.5-5.0); Chloride 108 mmol/L (98-107); Potassium 3.3 mmoL/L (3.5-5.1); Sodium 144 mmol/L (136-145)
[2025-07-07 22:10] LABS: Alanine Aminotransferase 21 U/L (12-78); Albumin/Globulin Ratio 1.4 (1.1-1.8); Alkaline Phosphatase 77 U/L (38-126); Anion Gap 14.3 mEq/L (5-15); Aspartate Amino Transferase 24 U/L (14-36); Bilirubin,Total 0.8 mg/dl (0.2-1.3); Blood Urea Nitrogen 21 mg/dl (7-17); Calcium 8.3 mg/dl (8.4-10.2); Carbon Dioxide 25 mmol/L (22.0-30.0); Creatinine Clearance Estimated 139 mL/min (50-200); Creatinine,Serum 0.70 mg/dl (0.52-1.04); Estimated Glomerular Filt Rate 91 ml/min (>60); GFR (African American) 111 ML/MIN (>60); Globulin 3.3 g/dL (1.3-3.2); Glucose 95 mg/dl (74-100); Lipase 161 U/L (23-300); Total Protein,Serum 7.8 g/dl (6.3-8.2)
[2025-07-07 22:10] LABS: Microscopic, Urine URINE MICROSCOPIC (MICROSCOPIC)
[2025-07-07 22:16] LABS: Bilirubin,Urine Negative (Negative); Color,Urine YELLOW (Yellow); Glucose,Urine (UA) Negative (Negative); Ketones,Urine Negative (Negative); Leukocyte Esterase,Urine Negative (Negative); PH,Urine 7.5 (5.0-8.5); Protein,Urine TRACE (Negative); Specific Gravity, Urine 1.020 (1.005-1.030); Urobilinogen,Urine 4.0 EU/dl (0.2)
[2025-07-07 22:38] LABS: Bacteria,Urine 2+ /lpf
--- NOTE | 2025-07-07 23:06 | ED_ITS ---
Discharge Plan Disposition Patient Disposition: Home, Self-Care Condition: Good Referrals Follow up/Referrals: Karri Rosas MD [Primary Care Provider, Medical] - See instructions Activity Restrictions/Add. Instructions Additional Instructions/Restrictions: If you develop flank pain, fevers, worsening urinary symptoms, or worsenig abdominal pain please return to the ER for further evaluation. Clinical Impressions Clinical Impression: Acute hypokalemia Hematuria Qualifiers: Hematuria type: unspecified type Qualified Code(s): R31.9 - Hematuria, unspecified Abdominal right upper quadrant tenderness Qualifiers: Presence of rebound: rebound tenderness absent Qualified Code(s): R10.811 - Right upper quadrant abdominal tenderness Instructions Patient Instructions: DI for Acute Abdominal Pain Print Language Print Language: [place] Discharge ED Provider: Eulalio Joseph Adult HPI General Chief complaint: Abdominal Pain Stated complaint: Hysterectomy with periodic bleeding pain Time Seen by Provider: 07/07/25 21:17 Mode of Arrival: Ambulatory Source of Information: Patient Description of Symptoms (Recalled from ER Triage Doc. by RN): Pt states she is having blood when she wipes Pain with urination, fever and nausea. History of Present Illness HPI narrative: This is a 45-year-old female patient who is presenting to the emergency department today for evaluation of hematuria. Patient tells me that 2 years ago she had a hysterectomy. She tells me over the last couple of days she has had blood in the toilet paper when she wipes. She initially thought that this was vaginal bleeding so she went to another emergency department last night where they performed a speculum exam and told her that she had no tears of her vaginal cuff, no vaginal tears, and suggested that she could have atrophic vaginitis. Today she began having some dysuria and she tells me that they did not check a urinary sample last night and she now believes she has a urinary tract infection. She has not had any abdominal pain, no flank pain, no nausea, vomiting, or diarrhea. In the triage note reports a fever, but the patient tells me that she has not had any documented fevers at home. Related Data Allergies Allergy/AdvReac Type Severity Reaction Status Date / Time No Known Allergies Allergy Verified 07/07/25 21:24 [facility] Disclaimer: The information contained in this section may have been updated after the patient was seen, as this information can be updated by other users. Social History Smoking Status: Current every day smoker alcohol intake: never current occupational status: other Travel in the last 8 weeks?: None ROS Obtained: Yes Systems reviewed as appropriate & no additional complaints except as documented Physical Exam General General appearance: other (See MDM) Respiratory Respiratory exam: Present other (See MDM) Cardiovascular Cardiovascular exam: Present other (See MDM) Neurological Exam Neurological exam: Present other (See MDM) Medical Decision Making Medical Records Medical records reviewed: Yes I reviewed the patient's medical records. Screening: Per USPSTF and CDC recommendations, given the prevalence of disease in our region, it is our hospital?s policy to screen for HIV and viral Hepatitis for all patients aged 18 and over and those with ongoing risk factors. Antonino Inquiry Pt receiving controlled substance: No Antonino was queried for this patient: No Vital Signs: 07/07/25 21:21 Temperature 98.5 F Temperature Source Oral Pulse Rate [Right Radial] 68 Respiratory Rate 20 Blood Pressure [Right Arm] 120/70 Blood Pressure Mean [Right Arm] 86 Blood Pressure Source [Right Arm] Automatic Cuff Blood Pressure Position [Right Arm] Sitting 02 Sat by Pulse Oximetry 100 Oxygen Delivery Method Room Air Lab Data Lab Results 07/07/25 21:16: Urine Color Yellow, Urine Appearance Clear, Urine pH 7.5, Ur Specific [place] 1.020, Urine Protein Trace, Urine Glucose (UA) Negative, Urine Ketones Negative, Urine Blood Trace-i, Urine Nitrate Negative, Urine Bilirubin Negative, Urine Urobilinogen 4.0, Ur Leukocyte Esterase Negative, Urine RBC 3-5, Urine WBC 3-5, Ur Squamous Epith Cells 5-10, Urine Bacteria 2+ 07/07/25 21:50: WBC 4.9, RBC 4.79, Hgb 14.3, Hct 41.8, MCV 87.3, MCH 29.9, MCHC 34.2, RDW 12.8, Plt Count 256, MPV 9.8, Neut % (Auto) 76.6, Lymph % (Auto) 15.6, [place] % (Auto) 5.8, Eos % (Auto) 1.4, Baso % (Auto) 0.4, Neut # (Auto) 3.7, Lymph # (Auto) 0.8, [place] # (Auto) 0.3, Eos # (Auto) 0.1, Baso # (Auto) 0.0, Sodium 144, Potassium 3.3 L, Chloride 108 H, Carbon Dioxide 25, Anion Gap 14.3, BUN 21 H, Creatinine 0.70, Estimated Creat Clear 139, Estimated GFR 91, Est GFR ( Amer) 111, Glucose 95, Calcium 8.3 L, Total Bilirubin 0.8, AST 24, ALT 21, Alkaline Phosphatase 77, Total Protein 7.8, Albumin 4.5, Globulin 3.3 H, Albumin/Globulin Ratio 1.4, Lipase 161 07/07/25 21:50 07/07/25 21:50 Orders (Tests/Meds): ED MEDICATIONS Generic Name Dose Route Start Last Admin Trade Name Freq PRN Reason Stop Dose Admin Ibuprofen 400 mg 07/07/25 23:03 Ibuprofen 400 Mg Tablet PO 07/07/25 23:04 ONCE ONE Potassium Chloride 40 meq 07/07/25 23:03 Potassium Chloride 20meq/15ml Udc PO 07/07/25 23:04 ONCE ONE ORDERS Category Date Time Status POCUS Point of Care (ER Only) Stat Exams 07/07/25 21:34 Completed CBC w/Auto Diff [Complete Blood Count Auto Diff] Stat Lab 07/07/25 21:50 Completed CMP [Comprehensive Metabolic Panel] Stat Lab 07/07/25 21:50 Completed Lipase Stat Lab 07/07/25 21:50 Completed Urinalysis and Microscopic Stat Lab 07/07/25 21:16 Completed Urine Culture Stat Micro 07/07/25 21:16 Received Medical Decision Narrative: In summary, this is a 45-year-old female patient, who is presented to the emergency department today for evaluation of hematuria described as blood in the toilet paper when wiping. She states that yesterday she had a vaginal exam where they noted no abnormalities in her vaginal vault and she is status post hysterectomy. Today she began experiencing some dysuria so she felt she had a urinary tract infection and decided to come here to the emergency department for further evaluation. On physical examination the patient is appropriately alert and oriented with a GCS of 15. She is grossly neurologically intact. She is nontoxic in appearance, she is hemodynamically stable, and she is saturating well on room air. On physical examination her heart and lungs are clear to auscultation bilaterally. She appears well-perfused. She has no tenderness of the lower quadrants of the suprapubic region. Upon very light touch of the right upper quadrant she stated that it was tender to palpation. She tells me that she has had no abdominal pain in this region over the last several days and did not note that she was experiencing anything abnormal in the right upper quadrant until I palpated this and she experienced discomfort. She has no guarding and no rebound. Additionally, she has no CVA tenderness to palpation. Differential diagnosis includes urinary tract infection, viral hemorrhagic cystitis, atrophic vaginitis, cholelithiasis, choledocholithiasis, pancreatitis, among others. Given that she has no flank tenderness on exam and reports no flank pain I have a low suspicion for pyelonephritis and ureterolithiasis Workup was initiated with hematologic labs as well as a urinalysis. Labs were personally interpreted by me and demonstrate no evidence of leukocytosis, no anemia, she does have mild hypokalemia with a potassium of 3.3. I have replaced this with 40 mEq of oral potassium chloride. No other significant electrolyte derangements or evidence of acute kidney injury. Her alkaline phosphatase, ALT, AST, and bilirubin are normal. Urinalysis shows trace blood and 3-5 red blood cells. There is also 3-5 white blood cells and 2+ bacteria but there is no nitrates and no leukocyte esterase. I do not feel that this is compatible with urinary tract infection at this time. Out of an abundance of precaution given that she had tenderness in the right upper quadrant on examination I decided to perform a right upper quadrant ultrasound to assess for gallbladder pathology. I do not appreciate any evidence of gallbladder wall thickening, choledocholithiasis, or pericholecystic fluid. Given that she had pain in the right upper quadrant after palpation I did treat her with 400 mg of ibuprofen. I have informed the patient of her results. She acknowledges understanding. She understands that she should return to the emergency department if she has worsening abdominal pain, worsening urinary symptoms, development of fevers at home, or any other new or worsening symptoms. Critical Care Critical Care Time Critical Care Time: No
[2025-07-07 23:11] VITALS: BP 108/70; PULSE 76; RESP 18; TEMP 36.8; O2SAT 98
[2025-07-07] MEDS: IBUPROFEN 400 MG TABLET PO (23:18)
[2025-07-07] MEDS: POTASSIUM CHLORIDE 20MEQ/15ML UDC 40 MEQ PO (23:20)
--- NOTE | 2025-07-09 08:52 | PC.NURSE ---
Urine culture reviewed by Dr. Ghosh. Prescription for Nitrofurantoin 100 mg PO BID x 5 days sent to [facility] in [place]. Attempted to call patient, no answer, left message to return call.
== END 2025-07-07 23:25 | disposition home or self-care (01) ==
PROVIDERS: Emergency Provider Student in an Organized Health Care Education/Training Program; PCP Family Medicine
DX: R10.811 Right upper quadrant abdominal tenderness (principal); N39.0 Urinary tract infection, site not specified; R31.9 Hematuria, unspecified; R30.0 Dysuria; E87.6 Hypokalemia; B96.20 Unspecified Escherichia coli [E. coli] as the cause of diseases classified elsewhere
CPT/HCPCS: 80053; 81001; 83690; 85025; 87086; 87088; 87186; 99284; 99285